=== PATIENT | female | born 1960 | race Two or more races ===

== ENCOUNTER → 2017-07-02 | Outpatient (CLI) | payer BC ==
[2017-07-02 12:36] LABS: Basophils # (auto) 0 uL; Basophils % (auto) 0.4 % (0.0-2.0); Eosinophils # (auto) 0.2 uL; Eosinophils % (auto) 3.4 % (0.0-7.0); Hematocrit 39.1 % (36.0-46.0); Hemoglobin 12.8 g/dL (12.2-16.2); Lymphocytes # (auto) 1.4 uL; Lymphocytes % (auto) 22.9 % (10.0-50.0); Mean Corpuscular Hemoglobin 28.6 pg (28.0-32.0); Mean Corpuscular Hgb Conc. 32.8 g/dL (32.0-36.0); Mean Corpuscular Volume 87.4 fL (80.0-100.0); Mean Platelet Volume 8.6 fL (6.9-10.8); Monocytes # (auto) 0.4 uL; Neutrophils # (auto) 4.2 uL; Neutrophils % (auto) 67.3 % (37.0-80.0); Platelet Count (auto) 251 10^3/uL (140-450); Red Cell Distribution Width 14.6 % (11.8-14.3); White Blood Cell 6.2 10^3/uL (4.4-10.8)
[2017-07-02 12:42] LABS: Albumin 3.4 g/dL (3.4-5.0); BUN/Creatinine Ratio 14.8; Bilirubin, Total 0.6 mg/dL (0.2-1.0); Calcium 8.5 mg/dL (8.5-10.1); Potassium 3.4 mmol/L (3.5-5.1); Total Protein 7.2 g/dL (6.4-8.2)
== END | disposition home or self-care (01) ==
LOC: LAB 11:00
PROVIDERS: ATTEND Internal Medicine
DX: Z00.01 Encounter for general adult medical examination with abnormal findings (principal); D56.3 Thalassemia minor; E66.9 Obesity, unspecified; M51.35 Other intervertebral disc degeneration, thoracolumbar region; R79.89 Other specified abnormal findings of blood chemistry
CPT/HCPCS: 36415; 80053; 80061; 82043; 82306; 84443; 85025

== ENCOUNTER → 2017-07-06 | Outpatient (CLI) | payer BC | END | disposition home or self-care (01) | LOC: LAB 14:04 | PROVIDERS: ATTEND Internal Medicine | DX: D56.3 Thalassemia minor (principal); E55.9 Vitamin D deficiency, unspecified; M51.35 Other intervertebral disc degeneration, thoracolumbar region | CPT/HCPCS: 82270 ==

== ENCOUNTER 2017-10-19 03:46 | Emergency (ER) | payer BC ==
[~2017-10-19] VITALS: Ht 160 cm; Wt 99.8 kg
[2017-10-19 04:40] LABS: Urine Bacteria FEW /hpf (None Seen); Urine Blood TRACE /uL (Negative); Urine Mucus FEW (None Seen); Urine Specific Gravity 1.018 (1.001-1.035); Urine WBC 49 /hpf (0 - 5)
[2017-10-19 06:39] LABS: Basophils # (auto) 0 uL; Basophils % (auto) 0.5 % (0.0-2.0); Eosinophils # (auto) 0.1 uL; Eosinophils % (auto) 1.8 % (0.0-7.0); Hemoglobin 12.5 g/dL (12.2-16.2); Lymphocytes # (auto) 1.5 uL; Lymphocytes % (auto) 22.3 % (10.0-50.0); Mean Corpuscular Hemoglobin 28.6 pg (28.0-32.0); Mean Corpuscular Volume 86.6 fL (80.0-100.0); Monocytes # (auto) 0.4 uL; Neutrophils # (auto) 4.5 uL; Neutrophils % (auto) 69.4 % (37.0-80.0); Platelet Count (auto) 220 10^3/uL (140-450); Red Blood Cells 4.39 10^6/uL (4.0-5.20); Red Cell Distribution Width 15.3 % (11.8-14.3); White Blood Cell 6.5 10^3/uL (4.4-10.8)
[2017-10-19 06:57] LABS: Albumin 3.4 g/dL (3.4-5.0); BUN/Creatinine Ratio 30.4; Bilirubin, Total 0.4 mg/dL (0.2-1.0); Calcium 8.4 mg/dL (8.5-10.1); Potassium 3.5 mmol/L (3.5-5.1); Total Protein 6.8 g/dL (6.4-8.2)
[2017-10-19 07:05] VITALS: BP 142/92
[2017-10-19 07:13] LABS: INR 0.98 (0.9-1.15); Partial Thromboplastin Time 28.5 sec (22.64-33.71); Prothrombin Time 10.7 sec (9.37-12.3)
[2017-10-19] MEDS ORDERED: KETOROLAC TROMETH 30 MG/ML 1ML VIAL IV ONE (07:30)
[2017-10-19] MEDS ORDERED: SODIUM CHLORIDE 0.9% 1,000 ML IVB ONE (07:30)
[2017-10-19] MEDS ORDERED: ONDANSETRON HCL 4 MG/2 ML VIAL IV ONE (07:45)
== END 2017-10-19 10:02 | disposition home or self-care (01) ==
LOC: ER 03:46
DX: N39.0 Urinary tract infection, site not specified (principal); Z90.89 Acquired absence of other organs; Z87.442 Personal history of urinary calculi; Z88.8 Allergy status to other drugs, medicaments and biological substances
CPT/HCPCS: 36415; 74176; 80053; 81001; 82150; 83690; 85025; 85610; 85730; 94761; 96361; 96374; 96375; 99285; J1885; J2405; J7030

== ENCOUNTER 2017-11-18 00:49 | Inpatient (IN) | payer BC ==
[~2017-11-18] VITALS: Ht 165.1 cm; Wt 106.3 kg
[2017-11-18] MEDS ORDERED: HYDROmorphone HCL 2 MG/ML VL IV ONE (01:00)
[2017-11-18] MEDS ORDERED: ONDANSETRON HCL 4 MG/2 ML VIAL IV ONE ×2 (01:00→02:00)
[2017-11-18] MEDS ORDERED: MORPHINE SULFATE 4 MG/ML SYR/VIAL ONE (01:05)
[2017-11-18] MEDS ORDERED: MORPHINE SULFATE 4 MG/ML SYR/VIAL IV ONE ×2 (01:15→01:30)
[2017-11-18 01:21] LABS: Basophils # (auto) 0 uL; Basophils % (auto) 0.4 % (0.0-2.0); Eosinophils # (auto) 0.2 uL; Hematocrit 39.2 % (36.0-46.0); Hemoglobin 13.1 g/dL (12.2-16.2); Lymphocytes # (auto) 1.8 uL; Lymphocytes % (auto) 23.1 % (10.0-50.0); Mean Corpuscular Hemoglobin 29.1 pg (28.0-32.0); Mean Corpuscular Hgb Conc. 33.4 g/dL (32.0-36.0); Monocytes # (auto) 0.4 uL; Monocytes % (auto) 4.9 % (0.0-12.0); Neutrophils # (auto) 5.5 uL; Neutrophils % (auto) 69.6 % (37.0-80.0); Platelet Count (auto) 264 10^3/uL (140-450); Red Blood Cells 4.51 10^6/uL (4.0-5.20); Red Cell Distribution Width 15.1 % (11.8-14.3); White Blood Cell 7.9 10^3/uL (4.4-10.8)
[2017-11-18 01:32] LABS: Urine Bacteria FEW /hpf (None Seen); Urine Blood 3+ /uL (Negative); Urine Specific Gravity 1.024 (1.001-1.035); Urine WBC 5 /hpf (0 - 5)
[2017-11-18 01:36] LABS: Albumin 3.6 g/dL (3.4-5.0); BUN/Creatinine Ratio 20.8; Calcium 8.6 mg/dL (8.5-10.1); Potassium 3.9 mmol/L (3.5-5.1)
[2017-11-18 01:42] LABS: Bilirubin, Total 0.3 mg/dL (0.2-1.0); Total Protein 7.3 g/dL (6.4-8.2)
[2017-11-18] MEDS ORDERED: IODIXANOL 320MG/ML 100ML BTL IV ONE (01:54)
[2017-11-18] MEDS ORDERED: SODIUM CHLORIDE 0.9% 1,000 ML IV ONE (02:00)
[2017-11-18] MEDS ORDERED: HYDROmorphone HCL 2 MG TAB PO ONE (02:00)
[2017-11-18] MEDS ORDERED: TEMAZEPAM 15 MG CAP PO PRN (05:15)
[2017-11-18] MEDS ORDERED: MORPHINE SULFATE 4 MG/ML SYR/VIAL IV PRN (05:15)
[2017-11-18] MEDS ORDERED: ONDANSETRON HCL 4 MG/2 ML VIAL IV PRN (05:15)
[2017-11-18] MEDS ORDERED: HYDROcodone-ACET 5/325MG TAB PO PRN (05:15)
[2017-11-18] MEDS ORDERED: TAMSULOSIN HYDROCHLORIDE 0.4 MG CAP PO ONE (05:15)
[2017-11-18] MEDS ORDERED: cefTRIAXone 1GM/10ml IVPUSH 10 ML IV ONE (05:45)
[2017-11-18] MEDS: GABAPENTIN 300 MG CAP PO SCH ×3 (05:56→21:53)
[2017-11-18] MEDS: SODIUM CHLORIDE 0.9% 1,000 ML IV SCH ×2 (06:04→16:38)
[2017-11-18] MEDS ORDERED: OMEP20CA74 PO (06:12)
[2017-11-18 06:14] VITALS: BP 144/69
[2017-11-18] MEDS ORDERED: MELO1TAB73 PO (06:53)
[2017-11-18] MEDS ORDERED: GABA-339 PO (06:53)
[2017-11-18 07:44] VITALS: BP 123/69
[2017-11-18] MEDS: cefTRIAXone 1GM/10ml IVPUSH 10 ML IV SCH (09:36)
[2017-11-18] MEDS: FAMOTIDINE 20 MG TAB PO SCH ×2 (09:36→21:53)
[2017-11-18] MEDS: HCTZ 25 MG TAB PO SCH (09:37)
[2017-11-18] MEDS: ENOXAPARIN SOD 40 MG/0.4 ML SYRINGE SC SCH (09:39)
[2017-11-18 12:10] VITALS: BP 122/66
[2017-11-18 16:42] VITALS: BP 129/78
[2017-11-18] MEDS: ACETAMINOPHEN 325 MG TAB PO PRN (18:37)
[2017-11-18 21:50] VITALS: BP 105/39
[2017-11-19] MEDS: SODIUM CHLORIDE 0.9% 1,000 ML IV SCH (04:06)
[2017-11-19 05:00] VITALS: BP 127/75
[2017-11-19] MEDS: GABAPENTIN 300 MG CAP PO SCH (05:05)
[2017-11-19 06:27] LABS: Basophils # (auto) 0 uL; Basophils % (auto) 0.4 % (0.0-2.0); Eosinophils # (auto) 0.1 uL; Hematocrit 38.5 % (36.0-46.0); Hemoglobin 12.9 g/dL (12.2-16.2); Lymphocytes # (auto) 1.5 uL; Lymphocytes % (auto) 20.9 % (10.0-50.0); Mean Corpuscular Hemoglobin 29.1 pg (28.0-32.0); Mean Corpuscular Hgb Conc. 33.4 g/dL (32.0-36.0); Mean Corpuscular Volume 87.2 fL (80.0-100.0); Monocytes # (auto) 0.5 uL; Monocytes % (auto) 6.5 % (0.0-12.0); Neutrophils % (auto) 70.2 % (37.0-80.0); Nucleated Red Blood Cells % 0.1 %; Platelet Count (auto) 246 10^3/uL (140-450); Red Blood Cells 4.42 10^6/uL (4.0-5.20); Red Cell Distribution Width 15.2 % (11.8-14.3); White Blood Cell 7.2 10^3/uL (4.4-10.8)
[2017-11-19 06:48] LABS: Albumin 3.4 g/dL (3.4-5.0); BUN/Creatinine Ratio 15.1; Calcium 8.8 mg/dL (8.5-10.1)
[2017-11-19 06:50] LABS: Bilirubin, Total 0.7 mg/dL (0.2-1.0)
[2017-11-19] MEDS: ACETAMINOPHEN 325 MG TAB PO PRN (07:00)
[2017-11-19 08:10] VITALS: BP 132/69
[2017-11-19 08:28] VITALS: BP 123/69
[2017-11-19] MEDS: cefTRIAXone 1GM/10ml IVPUSH 10 ML IV SCH (09:40)
[2017-11-19] MEDS: FAMOTIDINE 20 MG TAB PO SCH (09:41)
[2017-11-19] MEDS: ENOXAPARIN SOD 40 MG/0.4 ML SYRINGE SC SCH (09:41)
[2017-11-19] MEDS: HCTZ 25 MG TAB PO SCH (09:41)
[2017-11-19 10:50] VITALS: BP 132/69
== END 2017-11-19 11:20 | disposition home or self-care (01) | DRG 699 ==
LOC: ER 00:49 → OVERFLOW 00:50 → CENTRAL 05:47
PROVIDERS: ADMIT Nurse Practitioner; ATTEND Family Medicine
DX: N28.1 Cyst of kidney, acquired (principal); N39.0 Urinary tract infection, site not specified; G62.9 Polyneuropathy, unspecified; N13.2 Hydronephrosis with renal and ureteral calculous obstruction; I10 Essential (primary) hypertension; G47.00 Insomnia, unspecified; N28.89 Other specified disorders of kidney and ureter; Z88.5 Allergy status to narcotic agent; Z90.89 Acquired absence of other organs; Z79.899 Other long term (current) drug therapy
CPT/HCPCS: 36415; 74018; 74176; 74177; 76775; 80053; 81001; 85025; 96374; 96375; 96376; J2405; Q9967

== ENCOUNTER 2017-12-06 05:48 | Emergency (ER) | payer BC ==
[~2017-12-06] VITALS: Ht 165.1 cm; Wt 98.4 kg
[~2017-12-06 05:48] MED LIST: GABA-339 PO; MELO1TAB73 PO; OMEP20CA74 PO
[2017-12-06 06:36] VITALS: BP 139/53
== END 2017-12-06 06:37 | disposition home or self-care (01) ==
LOC: ER 05:48
DX: S83.502A Sprain of unspecified cruciate ligament of left knee, initial encounter (principal); M17.12 Unilateral primary osteoarthritis, left knee; Z90.89 Acquired absence of other organs; Z88.8 Allergy status to other drugs, medicaments and biological substances; X58.XXXA Exposure to other specified factors, initial encounter; Y93.89 Activity, other specified; Y99.8 Other external cause status; Y92.89 Other specified places as the place of occurrence of the external cause
CPT/HCPCS: 73700

== ENCOUNTER → 2018-10-10 | Outpatient (CLI) | payer BC ==
[2018-10-10 08:10] LABS: Basophils # (auto) 0 uL; Basophils % (auto) 0.5 % (0.0-2.0); Eosinophils # (auto) 0.1 uL; Eosinophils % (auto) 2.8 % (0.0-7.0); Hematocrit 37.4 % (36.0-46.0); Hemoglobin 12.4 g/dL (12.2-16.2); Lymphocytes # (auto) 1.5 uL; Lymphocytes % (auto) 28.9 % (10.0-50.0); Mean Corpuscular Hemoglobin 27.9 pg (28.0-32.0); Mean Corpuscular Hgb Conc. 33.2 g/dL (32.0-36.0); Mean Corpuscular Volume 84.2 fL (80.0-100.0); Monocytes # (auto) 0.3 uL; Monocytes % (auto) 6.3 % (0.0-12.0); Neutrophils # (auto) 3.2 uL; Neutrophils % (auto) 61.5 % (37.0-80.0); Platelet Count (auto) 253 10^3/uL (140-450); Red Blood Cells 4.44 10^6/uL (4.0-5.20); Red Cell Distribution Width 14.8 % (11.8-14.3); White Blood Cell 5.2 10^3/uL (4.4-10.8)
[2018-10-10 08:20] LABS: Alanine Aminotransferase 24 U/L (13-56); Albumin 3.5 g/dL (3.4-5.0); Anion Gap 5 (5-15); Aspartate Aminotransferase 16 U/L (15-37); BUN/Creatinine Ratio 22.9; Blood Urea Nitrogen 16 mg/dL (7-18); Calcium 9.1 mg/dL (8.5-10.1); Carbon Dioxide 28 mmol/L (21-32); Chloride 106 mmol/L (98-107); GFR African American > 60 mL/min; GFR Non-African American > 60 mL/min; Glucose 106 mg/dL (74-106); Potassium 3.7 mmol/L (3.5-5.1); Sodium 139 mmol/L (136-145)
[2018-10-10 08:24] LABS: Alkaline Phosphatase 103 U/L (45-117); Bilirubin, Total 0.4 mg/dL (0.2-1.0); Cholesterol 212 mg/dL (< 200); HDL Cholesterol 63 mg/dL (40-59); LDL Cholesterol 146 mg/dL (< 100); Total Protein 7.4 g/dL (6.4-8.2); Triglycerides 63 mg/dL (< 150)
== END | disposition home or self-care (01) ==
LOC: LAB 07:31
PROVIDERS: ATTEND Internal Medicine
DX: K29.60 Other gastritis without bleeding (principal); M51.24 Other intervertebral disc displacement, thoracic region; D56.3 Thalassemia minor; Z68.37 Body mass index [BMI] 37.0-37.9, adult
CPT/HCPCS: 36415; 80053; 80061; 83036; 84443; 85025

== ENCOUNTER → 2018-10-22 | Outpatient (CLI) | payer BC | END | disposition home or self-care (01) | LOC: LAB 08:32 | PROVIDERS: ATTEND Internal Medicine | DX: D56.3 Thalassemia minor (principal); M51.24 Other intervertebral disc displacement, thoracic region; K29.60 Other gastritis without bleeding; Z68.37 Body mass index [BMI] 37.0-37.9, adult | CPT/HCPCS: 82270 ==

== ENCOUNTER 2018-11-16 18:27 | Emergency (ER) | payer BC ==
[~2018-11-16] VITALS: Ht 165.1 cm; Wt 99.8 kg
[2018-11-16 18:28] VITALS: BP 131/68
[2018-11-16] MEDS ORDERED: cefTRIAXone SOD 1,000 MG VL ONE ×2 (19:01→19:04)
[2018-11-17] MEDS ORDERED: TRIAMCINOLONE 40MG/ML 1ML VIAL IM ONE
[2018-11-17] MEDS ORDERED: TRIAMCINOLONE 40MG/ML 1ML VIAL ONE (00:01)
== END 2018-11-16 19:00 | disposition home or self-care (01) ==
LOC: ER 18:27
DX: M75.31 Calcific tendinitis of right shoulder (principal); Z90.89 Acquired absence of other organs; Z88.1 Allergy status to other antibiotic agents; Z88.5 Allergy status to narcotic agent
CPT/HCPCS: 73200; 99284; J0696

== ENCOUNTER 2018-12-14 21:21 | Emergency (ER) | payer BC ==
[~2018-12-14] VITALS: Ht 165.1 cm; Wt 99.8 kg
[2018-12-14 21:42] VITALS: BP 125/71
[2018-12-14] MEDS ORDERED: diphenhdrAMINE HCL 50 MG/1 ML VL IV ONE (22:00)
[2018-12-14] MEDS ORDERED: EPINEPHrine HCL 1 MG/1 ML AMP SC ONE (22:00)
[2018-12-14] MEDS ORDERED: DEXAMETHASONE SOD PHOS 10MG/1ML VIAL INJ IV ONE (22:00)
[2018-12-15] MEDS ORDERED: cefTRIAXone SOD 1,000 MG VL IM ONE (00:30)
== END 2018-12-14 23:13 | disposition home or self-care (01) ==
LOC: ER 21:25
DX: T78.3XXA Angioneurotic edema, initial encounter (principal); N39.0 Urinary tract infection, site not specified; M19.90 Unspecified osteoarthritis, unspecified site; K21.9 Gastro-esophageal reflux disease without esophagitis; Z87.442 Personal history of urinary calculi; Z98.51 Tubal ligation status; Z88.1 Allergy status to other antibiotic agents; X58.XXXA Exposure to other specified factors, initial encounter
CPT/HCPCS: 96372; 96374; 96375; 99283; J0171; J1100; J1200

== ENCOUNTER 2019-01-25 05:29 | Emergency (ER) | payer BC ==
[~2019-01-25] VITALS: Ht 165.1 cm; Wt 99.8 kg
[2019-01-25] MEDS ORDERED: SODIUM CHLORIDE 0.9% 1,000 ML IVB ONE (05:36)
[2019-01-25] MEDS ORDERED: ONDANSETRON HCL 4 MG/2 ML VIAL IV ONE (05:45)
[2019-01-25] MEDS ORDERED: KETOROLAC TROMETH 30 MG/ML 1ML VIAL IV ONE ×2 (05:45→09:30)
[2019-01-25 06:06] LABS: Basophils # (auto) 0 uL; Basophils % (auto) 0.5 % (0.0-2.0); Eosinophils # (auto) 0.2 uL; Eosinophils % (auto) 3.1 % (0.0-7.0); Hematocrit 35.4 % (36.0-46.0); Hemoglobin 11.8 g/dL (12.2-16.2); Lymphocytes # (auto) 1.3 uL; Lymphocytes % (auto) 27.1 % (10.0-50.0); Mean Corpuscular Hemoglobin 28.2 pg (28.0-32.0); Mean Corpuscular Hgb Conc. 33.3 g/dL (32.0-36.0); Mean Corpuscular Volume 84.7 fL (80.0-100.0); Monocytes # (auto) 0.3 uL; Monocytes % (auto) 5.4 % (0.0-12.0); Neutrophils # (auto) 3.1 uL; Neutrophils % (auto) 63.9 % (37.0-80.0); Nucleated Red Blood Cells % 0.1 %; Platelet Count (auto) 230 10^3/uL (140-450); Red Blood Cells 4.18 10^6/uL (4.0-5.20); Red Cell Distribution Width 16.2 % (11.8-14.3); White Blood Cell 4.9 10^3/uL (4.4-10.8)
[2019-01-25 06:25] LABS: Albumin 3.2 g/dL (3.4-5.0); Anion Gap 6 (5-15); Blood Urea Nitrogen 18 mg/dL (7-18); Calcium 8.5 mg/dL (8.5-10.1); Carbon Dioxide 27 mmol/L (21-32); Chloride 111 mmol/L (98-107); Glucose 91 mg/dL (74-106); Lipase 82 U/L (73-393); Sodium 144 mmol/L (136-145)
[2019-01-25 06:27] LABS: Amylase 51 U/L (25-115); BUN/Creatinine Ratio 25.7; GFR African American 111 mL/min; GFR Non-African American 91 mL/min
[2019-01-25 06:39] LABS: Alanine Aminotransferase 20 U/L (13-56); Alkaline Phosphatase 83 U/L (45-117); Aspartate Aminotransferase 15 U/L (15-37); Bilirubin, Total 0.3 mg/dL (0.2-1.0); Total Protein 6.5 g/dL (6.4-8.2)
[2019-01-25 07:06] LABS: Urine Bacteria NONE SEEN /hpf (None Seen); Urine Blood TRACE /uL (Negative); Urine Mucus FEW (None Seen); Urine Specific Gravity 1.015 (1.001-1.035); Urine WBC 19 /hpf (0 - 5)
[2019-01-25] MEDS ORDERED: cefTRIAXone 1GM/50ML D5W 50 ML IV ONE (08:45)
[2019-01-25] MEDS ORDERED: cefTRIAXone SOD 1,000 MG VL ONE (09:20)
[2019-01-25] MEDS ORDERED: SODIUM CHLORIDE 0.9% 1,000 ML IV ONE ×2 (09:30→09:45)
[2019-01-25] MEDS ORDERED: TAMSULOSIN HYDROCHLORIDE 0.4 MG CAP PO ONE (09:30)
[2019-01-25 12:13] VITALS: BP 127/66
== END 2019-01-25 12:21 | disposition home or self-care (01) ==
LOC: ER 05:29
DX: N20.0 Calculus of kidney (principal); N39.0 Urinary tract infection, site not specified; M19.90 Unspecified osteoarthritis, unspecified site; K21.9 Gastro-esophageal reflux disease without esophagitis; Z88.1 Allergy status to other antibiotic agents; Z88.6 Allergy status to analgesic agent; Z98.51 Tubal ligation status; Z90.89 Acquired absence of other organs
CPT/HCPCS: 36415; 74176; 80053; 81001; 82150; 83690; 84484; 85025; 96361; 96365; 96375; 96376; 99284; J0696; J1885; J2405; J7030

== ENCOUNTER 2019-01-30 07:31 | Inpatient (IN) | payer BC ==
[~2019-01-30] VITALS: Ht 165.1 cm; Wt 104.8 kg
[2019-01-30] MEDS ORDERED: KETOROLAC TROMETH 30 MG/ML 1ML VIAL IV ONE (08:00)
[2019-01-30] MEDS ORDERED: SODIUM CHLORIDE 0.9% 1,000 ML IV ONE (08:30)
[2019-01-30] MEDS ORDERED: SODIUM CHLORIDE 0.9% 1,000 ML IV SCH (08:43)
[2019-01-30] MEDS ORDERED: NALBUPHINE HCL 10 MG/1ml INJECTION IV PRN (08:45)
[2019-01-30] MEDS ORDERED: MORPHINE SULF INJ 2 MG/ML SYRINGE 1ML IV PRN (08:45)
[2019-01-30] MEDS ORDERED: TEMAZEPAM 15 MG CAP PO PRN (08:45)
[2019-01-30] MEDS ORDERED: PROMETHAZINE HCL 25 MG/ML 1ML IV ONE (08:45)
[2019-01-30] MEDS ORDERED: PROMETHAZINE HCL 25 MG/ML 1ML IV PRN (08:45)
[2019-01-30] MEDS ORDERED: TAMSULOSIN HYDROCHLORIDE 0.4 MG CAP PO ONE (08:45)
[2019-01-30] MEDS ORDERED: ACETAMINOPHEN 500 MG TAB PO PRN (08:45)
[2019-01-30] MEDS ORDERED: traMADol HCL 50 MG TAB PO PRN (08:45)
[2019-01-30] MEDS ORDERED: NITROGLYCERIN 0.4 MG SL TAB SL PRN (08:45)
[2019-01-30] MEDS ORDERED: cefTRIAXone 1GM/50ML D5W 50 ML IV SCH (09:00)
--- NOTE | 2019-01-30 09:30 | NUR ---
RECEIVED REPORT FROM GRETA CHOI
[2019-01-30 09:33] LABS: Basophils # (auto) 0 uL; Basophils % (auto) 0.5 % (0.0-2.0); Eosinophils # (auto) 0.2 uL; Eosinophils % (auto) 2.9 % (0.0-7.0); Hematocrit 35.5 % (36.0-46.0); Hemoglobin 11.6 g/dL (12.2-16.2); Lymphocytes # (auto) 1.1 uL; Lymphocytes % (auto) 19.3 % (10.0-50.0); Mean Corpuscular Hemoglobin 27.4 pg (28.0-32.0); Mean Corpuscular Hgb Conc. 32.5 g/dL (32.0-36.0); Mean Corpuscular Volume 84.1 fL (80.0-100.0); Monocytes # (auto) 0.3 uL; Neutrophils # (auto) 4.3 uL; Neutrophils % (auto) 72.3 % (37.0-80.0); Platelet Count (auto) 236 10^3/uL (140-450); Red Blood Cells 4.22 10^6/uL (4.0-5.20); Red Cell Distribution Width 15.8 % (11.8-14.3); White Blood Cell 5.9 10^3/uL (4.4-10.8)
[2019-01-30 09:45] LABS: Albumin 3.4 g/dL (3.4-5.0); Calcium 8.5 mg/dL (8.5-10.1); Potassium 3.6 mmol/L (3.5-5.1)
[2019-01-30 09:50] LABS: BUN/Creatinine Ratio 26.7; Bilirubin, Total 0.2 mg/dL (0.2-1.0); Total Protein 6.8 g/dL (6.4-8.2)
[2019-01-30] MEDS ORDERED: ENOXAPARIN SOD 40 MG/0.4 ML SYRINGE SC SCH (10:00)
[2019-01-30] MEDS ORDERED: FAMOTIDINE 20 MG TAB PO SCH (10:00)
--- NOTE | 2019-01-30 10:10 | NUR ---
Telemetry admit from [facility] admitted to Telemetry unit after SBAR received. Patient oriented to Niurka Martinez, primary RN, unit, room, bed, and unit policies regarding patient care and visiting hours. Patient now on continuous telemetry monitoring, tele box # 9 and telemetry reading on arrival to unit is SINUS RHYTHM AT 77BPM. Patient placed on bedside oxygen, weighed by bedscale and encouraged to call if they need something. All questions and concerns addressed, patient verbalized understanding. Note: PT IS AWAKE AND ALERT, NO COMPLAINTS OF ABDOMINAL PAIN AT THIS TIME, WILL CONTINUE TO MONITOR.
[2019-01-30 10:15] LABS: Urine Bacteria FEW /hpf (None Seen); Urine Blood Negative /uL (Negative); Urine Specific Gravity 1.003 (1.001-1.035); Urine WBC 1 /hpf (0 - 5)
[2019-01-30] MEDS ORDERED: CELE100C82 PO (10:47)
[2019-01-30] MEDS ORDERED: NITR-52 PO (10:47)
[2019-01-30] MEDS ORDERED: GABA300C10 PO (10:47)
--- NOTE | 2019-01-30 11:13 | NUR ---
SPOKE WITH DR. KAISER HE SAID HE SPOKE WITH DR. ROOT AND PER DR. ROOT HE WILL NOT DO PROCEDURE UNTIL SUNDAY. DR. KAISER WILL TALK TO HOSPITALIST, PT IS POSSIBLE DISCHARGE LATER TODAY AFTER BEING SEEN BY DR. ROOT. Addendum: 01/30/19 at 1117 by Niurka Martinez RN PER DR. KAISER PT WILL BE DISCHARGE WITH PAIN MEDICATION.
[2019-01-30 12:30] VITALS: BP 142/93
[2019-01-30] MEDS ORDERED: MANNITOL 20% SOLN 100 gm/500ml 62.5 ML IV ONE (15:00)
--- NOTE | 2019-01-30 15:15 | NUR ---
SPOKE WITH DR. GONZALEZ MADE AWARE PT IS ASKING IF SHE CAN GO HOME. DR. ROOT TOLD THE PT THAT SHE WILL COME BACK ON SUNDAY AND WILL BE SCHEDULED FOR LITHOTRIPSY ON SUNDAY. DR. GONZALEZ SAID SHE NEEDS TO STAY OVERNIGHT BECAUSE OF THE STONE PAIN MIGHT COME BACK BUT IF PT WANTS TO GO HOME I WILL CALL DR. MELVIN TO SEE THE PT FOR DISCHARGE ORDER.
--- NOTE | 2019-01-30 15:34 | NUR ---
[facility] DR. MELVIN MADE AWARE PT IS REQUESTING TO GO HOME, PER PT DR. ROOT TOLD HER SHE CAN GO HOME AND WILL BE SCHEDULED FOR LITHOTRIPSY ON SUNDAY. DR. MELVIN ORDERED TO DISCHARGE THE PT.
--- NOTE | 2019-01-30 16:24 | NUR ---
SPOKE WITH DR. NEWTON MADE CLARIFICATION REGARDING ORDER FOR MANNITOL AND PROCEDURE ON SUNDAY. PER DR. ROOT PT NEEDS TO HAVE THE IV MANNITOL EXPULSIVE MEASURE SO THAT IF SHE PASS OUT THE STONE SHE WILL NOT NEED THE LITHOTRIPSY PROCEDURE. PT MADE AWARE AND AGREED.
--- NOTE | 2019-01-30 16:40 | NUR ---
PT INSTRUCTED TO STRAIN ALL URINE.
[2019-01-30 16:52] VITALS: BP 137/79
[2019-01-30] MEDS ORDERED: TAMSULOSIN HYDROCHLORIDE 0.4 MG CAP PO SCH (18:00)
--- NOTE | 2019-01-30 18:14 | NUR ---
medication held pt already took flomax early today.
[2019-01-30 18:24] VITALS: BP 137/79
--- NOTE | 2019-01-30 19:10 | NUR ---
care endorsed to GRETA Zimmer Made aware pt is for discharge pt need to observe the pain if she can tolerate it after mannitol was given.
--- NOTE | 2019-01-30 20:05 | NUR ---
Given and explained discharge papers and understood and signed, including appointment to her primary doctor Castillo Renteria on at 0900, patient knows the address, and also to call appointment on Sunday to Dr. Piper.
--- NOTE | 2019-01-30 20:15 | NUR ---
Discharged in good condition ambulatory ,refused to be in [place] and to accompany her, said she is oma by herself. Removed the i.v.line and tele box and returned the tele box.
== END 2019-01-30 20:15 | disposition home or self-care (01) | DRG 694 ==
LOC: ER 07:31 → TELE 08:46 → WEST WING 10:19 → TELE-WESTW 18:26
PROVIDERS: ADMIT Internal Medicine; ATTEND Internal Medicine
DX: N13.2 Hydronephrosis with renal and ureteral calculous obstruction (principal); K57.30 Diverticulosis of large intestine without perforation or abscess without bleeding; K21.9 Gastro-esophageal reflux disease without esophagitis; E66.9 Obesity, unspecified; M19.90 Unspecified osteoarthritis, unspecified site; Z87.442 Personal history of urinary calculi; Z81.8 Family history of other mental and behavioral disorders; Z98.84 Bariatric surgery status; Z68.38 Body mass index [BMI] 38.0-38.9, adult; Z87.440 Personal history of urinary (tract) infections; Z88.2 Allergy status to sulfonamides; Z88.8 Allergy status to other drugs, medicaments and biological substances
CPT/HCPCS: 36415; 74176; 80053; 81001; 82150; 83690; 85025; 87086; 96365; 96375; G0378; J0696; J1885

== ENCOUNTER 2019-02-03 08:14 | Inpatient (IN) | payer BC ==
[~2019-02-03] VITALS: Ht 165.1 cm; Wt 107.2 kg
[~2019-02-03 08:14] MED LIST changes: +CELE100C82 PO; -GABA-339 PO; +GABA300C10 PO; -MELO1TAB73 PO; +NITR-52 PO; -OMEP20CA74 PO
[2019-02-03] MEDS ORDERED: SODIUM CHLORIDE 0.9% 1,000 ML IV ONE ×2 (08:31)
[2019-02-03] MEDS ORDERED: KETOROLAC TROMETH 30 MG/ML 1ML VIAL IV ONE (09:00)
[2019-02-03] MEDS ORDERED: PROMETHAZINE HCL 25 MG/ML 1ML IV ONE (09:00)
[2019-02-03 09:01] LABS: Basophils # (auto) 0 uL; Basophils % (auto) 0.5 % (0.0-2.0); Eosinophils # (auto) 0.1 uL; Eosinophils % (auto) 2.8 % (0.0-7.0); Hematocrit 36.5 % (36.0-46.0); Hemoglobin 11.8 g/dL (12.2-16.2); Lymphocytes # (auto) 0.9 uL; Lymphocytes % (auto) 19.6 % (10.0-50.0); Mean Corpuscular Hemoglobin 27.2 pg (28.0-32.0); Mean Corpuscular Hgb Conc. 32.3 g/dL (32.0-36.0); Monocytes # (auto) 0.2 uL; Neutrophils # (auto) 3.4 uL; Neutrophils % (auto) 72.1 % (37.0-80.0); Platelet Count (auto) 245 10^3/uL (140-450); Red Blood Cells 4.35 10^6/uL (4.0-5.20); White Blood Cell 4.8 10^3/uL (4.4-10.8)
[2019-02-03 09:16] LABS: INR 0.92 (0.9-1.15); Partial Thromboplastin Time 27.3 sec (23.64-32.05)
[2019-02-03 09:22] LABS: Potassium 3.7 mmol/L (3.5-5.1)
[2019-02-03 09:26] LABS: Albumin 3.3 g/dL (3.4-5.0); BUN/Creatinine Ratio 25.4; Calcium 8.4 mg/dL (8.5-10.1)
[2019-02-03 09:28] LABS: Bilirubin, Total 0.5 mg/dL (0.2-1.0); Total Protein 6.9 g/dL (6.4-8.2)
[2019-02-03] MEDS ORDERED: SODIUM CHLORIDE 0.9% 1,000 ML IV SCH (10:44)
[2019-02-03] MEDS ORDERED: ACETAMINOPHEN 500 MG TAB PO PRN (10:45)
[2019-02-03] MEDS ORDERED: MORPHINE SULF INJ 2 MG/ML SYRINGE 1ML IV PRN ×2 (10:45)
[2019-02-03] MEDS ORDERED: HYDROcodone-ACET 5/325MG TAB PO PRN (10:45)
[2019-02-03] MEDS ORDERED: NITROGLYCERIN 0.4 MG SL TAB SL PRN (10:45)
[2019-02-03] MEDS ORDERED: ONDANSETRON HCL 4 MG/2 ML VIAL IV PRN (10:45)
[2019-02-03 10:55] LABS: Urine Bacteria NONE SEEN /hpf (None Seen); Urine Blood 2+ /uL (Negative); Urine Specific Gravity 1.006 (1.001-1.035); Urine WBC <1 /hpf (0 - 5)
[2019-02-03] MEDS ORDERED: cefTRIAXone 1GM/50ML D5W 50 ML IV ONE (12:04)
--- NOTE | 2019-02-03 12:35 | NUR ---
MS admit from [facility] RUBEN HERRERA admitted to MS, NO SBAR received. Patient oriented to Niurka Martinez, primary RN, unit, room, bed, and unit policies regarding patient care and visiting hours. Patient weighed by bedscale and encouraged to call if they need something. All questions and concerns addressed, patient verbalized understanding. Note: PT IS AWAKE AND ALERT, PT IS SCHEDULED FOR ESWL PROCEDURE UNDER DR. ROOT.
[2019-02-03 12:45] VITALS: BP 126/69
--- NOTE | 2019-02-03 12:55 | NUR ---
PT TRANSFERRED TO PRE-OP VIA BED, PT IS AWAKE AND ALERT, IV ON RIGHT AC PATENT AND FLUSHING, PT STILL TO SIGN CONSENTS FOR SURGERY, PRE-OP NURSE KENNETH MADE AWARE, NO SIGNS OF DISTRESS AT THIS TIME.
[2019-02-03] MEDS ORDERED: ceFAZolin 1GM/50ML 50 ML IV ONE (13:00)
[2019-02-03] MEDS ORDERED: FUROSEMIDE 20 MG/2 ML VIAL IV ONE (13:10)
[2019-02-03] MEDS ORDERED: fentaNYL CITRATE 100 MCG/2 ML VL ONE (13:14)
[2019-02-03] MEDS ORDERED: MIDAZOLAM HCL 1MG/1ML-2 ML VIAL ONE (13:14)
[2019-02-03] MEDS ORDERED: PROPOFOL 10 MG/ML 20 ML IV ONE (13:14)
[2019-02-03] MEDS ORDERED: fentaNYL CITRATE 100 MCG/2 ML VL IV ONE (13:59)
[2019-02-03] MEDS ORDERED: ONDANSETRON HCL 4 MG/2 ML VIAL IV ONE (14:00)
[2019-02-03] MEDS ORDERED: fentaNYL CITRATE 100 MCG/2 ML VL IV PRN (14:00)
[2019-02-03] MEDS ORDERED: ePHEDrine SULFATE 50 MG/ML AMP IV PRN (14:00)
[2019-02-03] MEDS ORDERED: hydrALAZINE HCL 20 MG/ML VL IV PRN (14:00)
--- NOTE | 2019-02-03 14:44 | NUR ---
RECEIVED REPORT FROM GRETA EDGE OF PACU
--- NOTE | 2019-02-03 15:05 | NUR ---
RECEIVED PT FROM PACU VIA BED, PT IS AWAKE AND ALERT, NO SIGNS OF DISTRESS AT THIS TIME, WILL CONTINUE TO MONITOR.
--- NOTE | 2019-02-03 15:10 | NUR ---
PT URINATED, NOTED STONES IN HER URINE, STONES SAVED IN THE SPECIMEN BOTTLE. WILL CONTINUE TO STRAIN THE URINE.
[2019-02-03] MEDS: SODIUM CHLORIDE 0.9% 1,000 ML IV SCH ×2 (15:35→22:54)
[2019-02-03] MEDS: GABAPENTIN 300 MG CAP PO SCH ×2 (15:35→22:00)
[2019-02-03] MEDS ORDERED: OME20T PO (15:53)
--- NOTE | 2019-02-03 16:37 | NUR ---
ANTIBIOTIC NICKOLAS GRAHAM MADE AWARE PT WAS GIVEN ANCEF IN OR, HE SAID TO START ROCEPHIN TOMORROW.
[2019-02-03 17:19] VITALS: BP 126/70
[2019-02-03] MEDS ORDERED: TAMSULOSIN HYDROCHLORIDE 0.4 MG CAP PO SCH (18:00)
--- NOTE | 2019-02-03 20:38 | NUR ---
Opening Shift Note Assumed care of patient, awake and alert. No S/S of distress/SOB or pain. Instructed on POC and to call for assist PRN, will continue to monitor for changes Q1hr and PRN.
[2019-02-03 21:30] VITALS: BP 106/53
[2019-02-03] MEDS: DOCUSATE SOD 100 MG CAP PO SCH (22:00)
[2019-02-04 04:59] VITALS: BP 128/78
[2019-02-04] MEDS: GABAPENTIN 300 MG CAP PO SCH ×2 (05:30→14:17)
--- NOTE | 2019-02-04 05:38 | NUR ---
Patient denies any flank or abdominal pain, c/o burning pain when voiding. patient is able to pass multiple renal stones, urine strained, patient is collecting renal stones in a specimen cup.
[2019-02-04] MEDS: SODIUM CHLORIDE 0.9% 1,000 ML IV SCH ×2 (06:28→15:20)
[2019-02-04 06:33] LABS: Basophils # (auto) 0 uL; Basophils % (auto) 0.6 % (0.0-2.0); Eosinophils # (auto) 0.1 uL; Eosinophils % (auto) 2.8 % (0.0-7.0); Hematocrit 34.1 % (36.0-46.0); Hemoglobin 11.1 g/dL (12.2-16.2); Lymphocytes # (auto) 1.3 uL; Mean Corpuscular Hemoglobin 27.6 pg (28.0-32.0); Mean Corpuscular Hgb Conc. 32.6 g/dL (32.0-36.0); Mean Corpuscular Volume 84.4 fL (80.0-100.0); Monocytes # (auto) 0.3 uL; Monocytes % (auto) 5.3 % (0.0-12.0); Neutrophils % (auto) 63.3 % (37.0-80.0); Platelet Count (auto) 236 10^3/uL (140-450); Red Blood Cells 4.04 10^6/uL (4.0-5.20); Red Cell Distribution Width 15.9 % (11.8-14.3); White Blood Cell 4.8 10^3/uL (4.4-10.8)
[2019-02-04 07:02] LABS: Potassium 4.2 mmol/L (3.5-5.1)
[2019-02-04 07:07] LABS: Calcium 8.3 mg/dL (8.5-10.1)
[2019-02-04 09:00] VITALS: BP 127/66
[2019-02-04] MEDS ORDERED: cefTRIAXone 1GM/50ML D5W 50 ML IV SCH (09:00)
--- NOTE | 2019-02-04 09:57 | NUR ---
Spoke with NICKOLAS Ellsworth at nurses station, she said pt is cleared to go home and will follow up with urology in 2 weeks. She ordered to send the stone to lab for stone analysis.
[2019-02-04] MEDS: DOCUSATE SOD 100 MG CAP PO SCH (10:00)
[2019-02-04] MEDS ORDERED: PANTOPRAZOLE 40 MG TAB PO SCH (10:00)
--- NOTE | 2019-02-04 10:34 | NUR ---
stone specimen sent to lab
[2019-02-04 12:49] VITALS: BP 125/64
--- NOTE | 2019-02-04 13:01 | NUR ---
DR. STALLWORTH MADE AWARE PT WAS CLEARED BY UROLOGY AND PT IS ASKING IF SHE CAN GO HOME. DR. STALLWORTH SAID HE WILL COME SEE THE PT SOON HE CAN.
--- NOTE | 2019-02-04 14:15 | NUR ---
PT SEEN BY DR. STALLWORTH PER DR. STALLWORTH PT CAN GO HOME AND WILL FOLLOW UP WITH DR. ROOT IN 2 WEEKS.
[2019-02-04 14:53] VITALS: BP 125/64
[2019-02-04] MEDS ORDERED: PNEUMOCOCCAL VACC POLYS 25 MCG/0.5 ML VIAL IM ONE (15:30)
--- NOTE | 2019-02-04 15:45 | NUR ---
Discharge instructions given as ordered. Encourage to follow up with DR. MIGUEL KILGORE ON FEBRUARY 12 AT 9:00, INSTRUCTED TO MAKE AN APPOINTMENT WITH DR. ROOT UROLOGY THROUGH HER PRIMARY DOCTOR, TELEPHONE NUMBER AND ADDRESS PROVIDED TO THE PT, PT VERBALIZED SHE WILL GET REFERRAL FROM HER PRIMARY DOCTOR . All questions and concerns addressed. Patient verbalized understanding. Medication reconciliation form completed and copy given to patient. PNEUMONIA vaccine given. IV removed with catheter intact, pressure dressing applied. Patient PREFERRED TO WALK to vehicle with all personal belongings, accompanied by . No distress noted at time of departure.
== END 2019-02-04 18:30 | disposition home or self-care (01) | DRG 691 ==
LOC: EDUNIT# 08:14 → ER 08:14 → OVERFLOW 10:49 → EAST 12:02
PROVIDERS: ADMIT Nurse Practitioner Acute Care; ATTEND Internal Medicine Pulmonary Disease
PROC: 0TF3XZZ Fragmentation in Right Kidney Pelvis, External Approach (ICD-10-PCS; principal; 2019-02-03 14:05)
DX: N13.2 Hydronephrosis with renal and ureteral calculous obstruction (principal); E44.1 Mild protein-calorie malnutrition; D64.9 Anemia, unspecified; K21.9 Gastro-esophageal reflux disease without esophagitis; E66.9 Obesity, unspecified; M19.90 Unspecified osteoarthritis, unspecified site; Z68.39 Body mass index [BMI] 39.0-39.9, adult; Z79.899 Other long term (current) drug therapy; Z87.442 Personal history of urinary calculi; Z98.84 Bariatric surgery status; Z98.51 Tubal ligation status; Z88.2 Allergy status to sulfonamides; Z88.5 Allergy status to narcotic agent; Z23 Encounter for immunization
CPT/HCPCS: 36415; 71045; 76775; 80048; 80053; 81001; 82360; 85025; 85610; 85730; 87081; 87086; 93005; 96374; 96375; G0378; J0690; J0696; J1885; J2250; J2704

== ENCOUNTER 2019-03-27 00:56 | Emergency (ER) | payer BC ==
[~2019-03-27] VITALS: Ht 165.1 cm; Wt 99.8 kg
[~2019-03-27 00:56] MED LIST changes: -NITR-52 PO; +OME20T PO
[2019-03-27 00:57] VITALS: BP 142/61
[2019-03-27] MEDS ORDERED: TRIAMCINOLONE 40MG/ML 1ML VIAL IX ONE (01:15)
[2019-03-27] MEDS ORDERED: LIDOCAINE 2%HCL (LOCAL ANESTH.) INJ 10ml MDV IJ ONE (01:15)
[2019-03-27] MEDS ORDERED: LIDOCAINE 1% HCL (LOCAL ANESTH.) INJ 20ML MDV IJ ONE (01:30)
== END 2019-03-27 01:55 | disposition home or self-care (01) ==
LOC: EEVIPCON 00:57 → ER 00:57
DX: M77.32 Calcaneal spur, left foot (principal); M72.2 Plantar fascial fibromatosis; Z87.442 Personal history of urinary calculi; Z88.2 Allergy status to sulfonamides
CPT/HCPCS: 20605; 73630; 99284; J2001; J3301

== ENCOUNTER → 2019-03-28 | Outpatient (CLI) | payer BC ==
[2019-03-28 08:31] LABS: Albumin 3.4 g/dL (3.4-5.0); Calcium 9.1 mg/dL (8.5-10.1); Magnesium 2.5 mg/dL (1.6-2.6); Potassium 3.9 mmol/L (3.5-5.1)
[2019-03-28 08:36] LABS: BUN/Creatinine Ratio 21.6; Bilirubin, Total 0.2 mg/dL (0.2-1.0); Total Protein 7.4 g/dL (6.4-8.2); Uric Acid 3.4 mg/dL (2.6-6.0)
[2019-03-28 08:42] LABS: Free T4 (Free Thyroxine) 0.95 ng/dL (0.89-1.76)
[2019-03-28 08:44] LABS: Urine Bacteria NONE SEEN /hpf (None Seen); Urine Hyaline Cast FEW /lpf (0 - 2); Urine Mucus FEW (None Seen); Urine Specific Gravity 1.025 (1.001-1.035); Urine WBC 3 /hpf (0 - 5)
[2019-03-28 08:47] LABS: Basophils # (auto) 0 uL; Basophils % (auto) 0.2 % (0.0-2.0); Eosinophils # (auto) 0 uL; Eosinophils % (auto) 0.4 % (0.0-7.0); Hematocrit 36.3 % (36.0-46.0); Hemoglobin 11.9 g/dL (12.2-16.2); Lymphocytes % (auto) 10.6 % (10.0-50.0); Mean Corpuscular Hemoglobin 27.6 pg (28.0-32.0); Mean Corpuscular Hgb Conc. 32.8 g/dL (32.0-36.0); Mean Corpuscular Volume 84.2 fL (80.0-100.0); Monocytes # (auto) 0.4 uL; Monocytes % (auto) 4.3 % (0.0-12.0); Neutrophils # (auto) 7.7 uL; Neutrophils % (auto) 84.5 % (37.0-80.0); Platelet Count (auto) 262 10^3/uL (140-450); Red Blood Cells 4.31 10^6/uL (4.0-5.20); Red Cell Distribution Width 16.8 % (11.8-14.3); White Blood Cell 9.1 10^3/uL (4.4-10.8)
[2019-03-28 08:49] LABS: Urine Blood Trace /uL (Negative)
== END | disposition home or self-care (01) ==
LOC: LAB 07:36
DX: Z76.89 Persons encountering health services in other specified circumstances (principal)
CPT/HCPCS: 36415; 80053; 80061; 81001; 82306; 82607; 83036; 83735; 84439; 84443; 84550; 85025; 85045

== ENCOUNTER 2019-04-13 05:17 | Emergency (ER) | payer BC, OTHER ==
[~2019-04-13] VITALS: Ht 165.1 cm; Wt 99.8 kg
[2019-04-13 06:35] VITALS: BP 120/64
[2019-04-14 08:56] LABS: Hepatitis B Surface Antibody Positive
[2019-04-14 14:30] LABS: Hepatitis B Surface Antigen Negative (Negative)
== END 2019-04-13 06:47 | disposition home or self-care (01) ==
LOC: ER 05:17
DX: S61.032A Puncture wound without foreign body of left thumb without damage to nail, initial encounter (principal); Z88.2 Allergy status to sulfonamides; Z88.8 Allergy status to other drugs, medicaments and biological substances; Z79.899 Other long term (current) drug therapy; W27.3XXA Contact with needle (sewing), initial encounter; Y93.89 Activity, other specified; Y92.89 Other specified places as the place of occurrence of the external cause; Y99.8 Other external cause status
CPT/HCPCS: 36415; 86703; 86706; 86803; 87340

== ENCOUNTER 2019-05-08 00:39 | Emergency (ER) | payer BC, OTHER ==
[~2019-05-08] VITALS: Ht 165.1 cm; Wt 99.8 kg
[2019-05-08 00:41] VITALS: BP 132/70
[2019-05-08] MEDS ORDERED: TRIAMCINOLONE 40MG/ML 1ML VIAL IM ONE (01:22)
[2019-05-08] MEDS ORDERED: METHOCARBAMOL 500 MG TAB PO ONE (01:22)
== END 2019-05-08 01:36 | disposition home or self-care (01) ==
LOC: ER 00:40 → EEVIPCON 00:40 → ER 01:36
DX: M51.26 Other intervertebral disc displacement, lumbar region (principal); Z88.6 Allergy status to analgesic agent; Z88.2 Allergy status to sulfonamides; Z90.89 Acquired absence of other organs; Z90.49 Acquired absence of other specified parts of digestive tract
CPT/HCPCS: 72131; 96372; 99284; J3301

== ENCOUNTER → 2019-06-12 | Outpatient (CLI) | payer BC | END | disposition home or self-care (01) | LOC: Rad HDHVI 08:16 | PROVIDERS: ATTEND Internal Medicine Cardiovascular Disease | DX: I34.0 Nonrheumatic mitral (valve) insufficiency (principal); R00.2 Palpitations; R07.9 Chest pain, unspecified | CPT/HCPCS: 93306 ==

== ENCOUNTER → 2019-06-19 | Outpatient (CLI) | payer BC ==
[~2019-06-19] VITALS: Ht 165.1 cm; Wt 101.6 kg
== END | disposition home or self-care (01) ==
LOC: Rad HDHVI 13:03
PROVIDERS: ATTEND Internal Medicine Cardiovascular Disease
DX: R00.2 Palpitations (principal); K21.9 Gastro-esophageal reflux disease without esophagitis
CPT/HCPCS: 78452; 93017; 96374; A9500

== ENCOUNTER 2019-09-01 23:34 | Emergency (ER) | payer BC ==
[~2019-09-01] VITALS: Ht 165.1 cm; Wt 99.8 kg
[2019-09-02 04:17] VITALS: BP 149/66
[2019-09-02] MEDS ORDERED: ONDANSETRON ODT 4 MG TAB PO ONE (04:30)
== END 2019-09-02 04:44 | disposition home or self-care (01) ==
LOC: ER 23:38 → MERGE 23:38 → ER 09-02 04:44
DX: S80.02XA Contusion of left knee, initial encounter (principal); S80.01XA Contusion of right knee, initial encounter; S16.1XXA Strain of muscle, fascia and tendon at neck level, initial encounter; R11.2 Nausea with vomiting, unspecified; R51 Headache; Z88.2 Allergy status to sulfonamides; Z88.8 Allergy status to other drugs, medicaments and biological substances; W10.9XXA Fall (on) (from) unspecified stairs and steps, initial encounter; Y93.89 Activity, other specified; Y92.89 Other specified places as the place of occurrence of the external cause; Y99.0 Civilian activity done for income or pay
CPT/HCPCS: 70450; 72125; 99284; Q0162

== ENCOUNTER 2020-01-11 14:00 | Emergency (ER) | payer BC, OTHER ==
[~2020-01-11] VITALS: Ht 175.3 cm; Wt 99.8 kg
[2020-01-11 14:30] VITALS: BP 138/70
[2020-01-11] MEDS ORDERED: ACETAMINOPHEN/CODEINE#3 (300/30mg) TAB PO ONE (14:45)
[2020-01-11] MEDS ORDERED: METHOCARBAMOL 500 MG TAB PO ONE (14:45)
== END 2020-01-11 16:03 | disposition home or self-care (01) ==
LOC: EEVIPCON 14:00 → ER 14:00
DX: S33.5XXA Sprain of ligaments of lumbar spine, initial encounter (principal); M54.16 Radiculopathy, lumbar region; Z87.442 Personal history of urinary calculi; Z88.2 Allergy status to sulfonamides; Z88.8 Allergy status to other drugs, medicaments and biological substances; W23.0XXA Caught, crushed, jammed, or pinched between moving objects, initial encounter; Y93.89 Activity, other specified; Y92.89 Other specified places as the place of occurrence of the external cause; Y99.8 Other external cause status
CPT/HCPCS: 72131

== ENCOUNTER → 2020-03-27 | Outpatient (CLI) | payer OTHER | END | disposition home or self-care (01) | LOC: LAB 13:03 | PROVIDERS: ATTEND Nurse Practitioner Family | DX: U07.1 COVID-19 (principal) | CPT/HCPCS: 87635 ==

== ENCOUNTER 2020-03-28 11:24 | Emergency (ER) | payer BC, OTHER ==
[~2020-03-28] VITALS: Ht 165.1 cm; Wt 90.7 kg
[2020-03-28 11:27] VITALS: BP 100/56
== END 2020-03-28 13:29 | disposition home or self-care (01) ==
LOC: ER 11:24
DX: J02.9 Acute pharyngitis, unspecified (principal); R50.9 Fever, unspecified; Z20.828 Contact with and (suspected) exposure to other viral communicable diseases
CPT/HCPCS: 71045

== ENCOUNTER → 2020-07-09 | Outpatient (CLI) | payer BC ==
[2020-07-09 11:41] LABS: Urine Bacteria NONE SEEN /hpf (None Seen); Urine Blood Negative /uL (Negative); Urine Mucus FEW (None Seen); Urine Specific Gravity 1.029 (1.001-1.035); Urine WBC 3 /hpf (0 - 5)
[2020-07-09 11:50] LABS: INR 1.02 (0.9-1.15)
[2020-07-09 11:52] LABS: Basophils # (auto) 0 10 ^3/uL (0-0.2); Basophils % (auto) 0.6 % (0.0-2.0); Eosinophils # (auto) 0.1 10 ^3/uL (0-0.8); Eosinophils % (auto) 1.7 % (0.0-7.0); Hematocrit 36.3 % (36.0-46.0); Hemoglobin 11.8 g/dL (12.2-16.2); Lymphocytes # (auto) 1.1 10 ^3/uL (0.4-5.4); Lymphocytes % (auto) 21.5 % (10.0-50.0); Mean Corpuscular Hemoglobin 27.4 pg (28.0-32.0); Mean Corpuscular Hgb Conc. 32.4 g/dL (32.0-36.0); Mean Corpuscular Volume 84.6 fL (80.0-100.0); Monocytes # (auto) 0.3 10 ^3/uL (0-1.3); Monocytes % (auto) 5.3 % (0.0-12.0); Neutrophils # (auto) 3.7 10 ^3/uL (1.6-8.6); Neutrophils % (auto) 70.9 % (37.0-80.0); Platelet Count (auto) 256 10^3/uL (140-450); Red Blood Cells 4.29 10^6/uL (4.0-5.20); White Blood Cell 5.2 10^3/uL (4.4-10.8)
[2020-07-09 12:03] LABS: Magnesium 2.7 mg/dL (1.6-2.6); Potassium 4.1 mmol/L (3.5-5.1)
[2020-07-09 12:11] LABS: Albumin 3.5 g/dL (3.4-5.0); BUN/Creatinine Ratio 24.6; Bilirubin, Total 0.5 mg/dL (0.2-1.0); Phosphorus 3.4 mg/dL (2.5-4.90); Total Protein 6.9 g/dL (6.4-8.2); Uric Acid 4.4 mg/dL (2.6-6.0)
[2020-07-09 12:17] LABS: Free T3 2.83 pg/mL (2.3-4.2); Free T4 (Free Thyroxine) 1.04 ng/dL (0.89-1.76); T3 Total 1.1 ng/mL (0.60-1.81)
== END | disposition home or self-care (01) ==
LOC: LAB 11:11
DX: Z13.21 Encounter for screening for nutritional disorder (principal); D51.9 Vitamin B12 deficiency anemia, unspecified; R82.90 Unspecified abnormal findings in urine; R79.9 Abnormal finding of blood chemistry, unspecified; R74.9 Abnormal serum enzyme level, unspecified; E07.9 Disorder of thyroid, unspecified; E78.2 Mixed hyperlipidemia; Z13.29 Encounter for screening for other suspected endocrine disorder
CPT/HCPCS: 36415; 80053; 80061; 81001; 82306; 82607; 83036; 83540; 83615; 83735; 84100; 84439; 84443; 84480; 84481; 84550; 85025; 85610; 87086

== ENCOUNTER 2021-01-02 09:39 | Emergency (ER) | payer BC ==
[~2021-01-02] VITALS: Ht 165.1 cm; Wt 86.2 kg
[2021-01-02 09:39] VITALS: BP 141/78
== END 2021-01-02 10:16 | disposition home or self-care (01) ==
LOC: ER 09:39 → EEVIPCON 09:39 → ER 10:16
DX: Z20.822 Contact with and (suspected) exposure to COVID-19 (principal); Z87.442 Personal history of urinary calculi; Z98.51 Tubal ligation status; Z98.890 Other specified postprocedural states; Z79.899 Other long term (current) drug therapy; Z88.8 Allergy status to other drugs, medicaments and biological substances; Z88.2 Allergy status to sulfonamides
CPT/HCPCS: 99283; C9803; U0003

== ENCOUNTER 2021-02-09 00:25 | Emergency (ER) | payer BC ==
[~2021-02-09] VITALS: Ht 165.1 cm; Wt 86.2 kg
[2021-02-09 00:26] VITALS: BP 139/68
[2021-02-09 01:50] LABS: Urine Bacteria FEW /hpf (None Seen); Urine Blood Negative /uL (Negative); Urine Hyaline Cast FEW /lpf (0 - 2); Urine Mucus FEW (None Seen); Urine Specific Gravity 1.026 (1.001-1.035); Urine WBC 8 /hpf (0 - 5)
[2021-02-09] MEDS ORDERED: cefTRIAXone 1GM/50ML D5W 50 ML IV ONE ×2 (02:00→02:04)
[2021-02-09] MEDS ORDERED: TAMSULOSIN HYDROCHLORIDE 0.4 MG CAP PO ONE (02:00)
[2021-02-09] MEDS ORDERED: SODIUM CHLORIDE 0.9% 1,000 ML IV ONE (02:00)
== END 2021-02-09 02:43 | disposition home or self-care (01) ==
LOC: ER 00:27 → EEVIPCON 00:27 → ER 02:43
DX: N20.0 Calculus of kidney (principal); N39.0 Urinary tract infection, site not specified
CPT/HCPCS: 74176; 81001; 96365; 99284; J0696

== ENCOUNTER → 2021-02-24 | Outpatient (CLI) | payer BC ==
[2021-02-24 09:40] LABS: Basophils # (auto) 0 10 ^3/uL (0-0.2); Basophils % (auto) 0.6 % (0.0-2.0); Eosinophils # (auto) 0.1 10 ^3/uL (0-0.8); Eosinophils % (auto) 2.1 % (0.0-7.0); Hematocrit 35.6 % (36.0-46.0); Hemoglobin 11.9 g/dL (12.2-16.2); Lymphocytes # (auto) 1.3 10 ^3/uL (0.4-5.4); Lymphocytes % (auto) 22.9 % (10.0-50.0); Mean Corpuscular Hemoglobin 28.2 pg (28.0-32.0); Mean Corpuscular Hgb Conc. 33.5 g/dL (32.0-36.0); Mean Corpuscular Volume 84.2 fL (80.0-100.0); Monocytes # (auto) 0.3 10 ^3/uL (0-1.3); Monocytes % (auto) 5.6 % (0.0-12.0); Neutrophils # (auto) 3.8 10 ^3/uL (1.6-8.6); Neutrophils % (auto) 68.8 % (37.0-80.0); Platelet Count (auto) 243 10^3/uL (140-450); Red Blood Cells 4.22 10^6/uL (4.0-5.20); Red Cell Distribution Width 16.2 % (11.8-14.3); White Blood Cell 5.6 10^3/uL (4.4-10.8)
[2021-02-24 10:53] LABS: Magnesium 2.5 mg/dL (1.6-2.6); Potassium 4.2 mmol/L (3.5-5.1)
[2021-02-24 11:00] LABS: Folate (Folic Acid) 23.72 ng/mL (5.38-24)
[2021-02-24 11:05] LABS: Albumin 3.5 g/dL (3.4-5.0); BUN/Creatinine Ratio 23.5; Bilirubin, Total 0.4 mg/dL (0.2-1.0); Calcium 8.9 mg/dL (8.5-10.1)
== END | disposition home or self-care (01) ==
LOC: LAB 09:11
PROVIDERS: ATTEND Family Medicine
DX: D51.9 Vitamin B12 deficiency anemia, unspecified (principal); R68.89 Other general symptoms and signs; R94.6 Abnormal results of thyroid function studies; R73.09 Other abnormal glucose; E55.9 Vitamin D deficiency, unspecified; R79.89 Other specified abnormal findings of blood chemistry; R82.991 Hypocitraturia; E78.49 Other hyperlipidemia
CPT/HCPCS: 36415; 80053; 80061; 82306; 82607; 82746; 83036; 83735; 84443; 85025

== ENCOUNTER 2021-04-02 13:12 | Emergency (ER) | payer BC, OTHER ==
[~2021-04-02] VITALS: Ht 165.1 cm; Wt 95.3 kg
[2021-04-02 13:28] VITALS: BP 153/71
[2021-04-02] MEDS ORDERED: LORazepam 2MG/ML-1ML VIAL IM ONE (13:30)
== END 2021-04-02 15:25 | disposition home or self-care (01) ==
LOC: EEVIPCON 13:12 → ER 13:12
DX: F40.240 Claustrophobia (principal); Z02.89 Encounter for other administrative examinations; Z88.2 Allergy status to sulfonamides; Z88.8 Allergy status to other drugs, medicaments and biological substances; Z79.899 Other long term (current) drug therapy; Z87.442 Personal history of urinary calculi; Z98.890 Other specified postprocedural states; Z90.89 Acquired absence of other organs
CPT/HCPCS: 96372; 99283; J2060

== ENCOUNTER → 2021-04-28 | Outpatient (CLI) | payer BC ==
[2021-04-28 13:57] LABS: Urine Bacteria FEW /hpf (None Seen); Urine Blood Negative /uL (Negative); Urine Specific Gravity 1.004 (1.001-1.035); Urine WBC 8 /hpf (0 - 5)
== END | disposition home or self-care (01) ==
LOC: LAB 12:40
PROVIDERS: ATTEND Nurse Practitioner Family
DX: N39.0 Urinary tract infection, site not specified (principal); R30.0 Dysuria
CPT/HCPCS: 81001; 87086

== ENCOUNTER 2021-05-13 03:45 | Emergency (ER) | payer BC ==
[~2021-05-13] VITALS: Ht 165.1 cm; Wt 92.5 kg
[2021-05-13 04:37] LABS: Urine Bacteria FEW /hpf (None Seen); Urine Blood Negative /uL (Negative); Urine Mucus FEW (None Seen); Urine Specific Gravity 1.012 (1.001-1.035); Urine WBC 31 /hpf (0 - 5); Urine WBC Clumps PRESENT /hpf (None Seen)
[2021-05-13 06:01] VITALS: BP 138/65
== END 2021-05-13 06:02 | disposition home or self-care (01) ==
LOC: ER 03:45
DX: N39.0 Urinary tract infection, site not specified (principal); Z90.89 Acquired absence of other organs; Z98.51 Tubal ligation status; Z88.6 Allergy status to analgesic agent; Z88.8 Allergy status to other drugs, medicaments and biological substances
CPT/HCPCS: 74176; 81001; 87086; 87088; 87186; 99284; J7030

== ENCOUNTER → 2021-06-08 | Outpatient (CLI) | payer BC ==
[2021-06-08 15:51] LABS: Basophils # (auto) 0 10 ^3/uL (0-0.2); Basophils % (auto) 0.3 % (0.0-2.0); Eosinophils # (auto) 0.2 10 ^3/uL (0-0.8); Eosinophils % (auto) 3.1 % (0.0-7.0); Hemoglobin 11.3 g/dL (12.2-16.2); Lymphocytes # (auto) 1.4 10 ^3/uL (0.4-5.4); Mean Corpuscular Hemoglobin 27.1 pg (28.0-32.0); Mean Corpuscular Hgb Conc. 32.3 g/dL (32.0-36.0); Monocytes # (auto) 0.3 10 ^3/uL (0-1.3); Monocytes % (auto) 6.2 % (0.0-12.0); Neutrophils # (auto) 3.1 10 ^3/uL (1.6-8.6); Neutrophils % (auto) 61.4 % (37.0-80.0); Red Blood Cells 4.16 10^6/uL (4.0-5.20); Red Cell Distribution Width 15.6 % (11.8-14.3)
[2021-06-08 15:54] LABS: Urine Bacteria NONE SEEN /hpf (None Seen); Urine Blood Negative /uL (Negative); Urine Specific Gravity 1.012 (1.001-1.035); Urine WBC 4 /hpf (0 - 5)
[2021-06-08 16:13] LABS: Albumin 3.3 g/dL (3.4-5.0); Calcium 8.9 mg/dL (8.5-10.1); Magnesium 2.4 mg/dL (1.6-2.6); Potassium 3.7 mmol/L (3.5-5.1); Uric Acid 4.5 mg/dL (2.6-6.0)
[2021-06-08 16:17] LABS: BUN/Creatinine Ratio 20.3; Bilirubin, Total 0.3 mg/dL (0.2-1.0); Total Protein 6.8 g/dL (6.4-8.2)
[2021-06-08 16:20] LABS: INR 0.99 (0.9-1.15)
[2021-06-08 16:52] LABS: Free T3 3.44 pg/mL (2.3-4.2)
== END | disposition home or self-care (01) ==
LOC: LAB 15:29
PROVIDERS: ATTEND Internal Medicine
DX: E61.2 Magnesium deficiency (principal); D51.9 Vitamin B12 deficiency anemia, unspecified; R73.09 Other abnormal glucose; R94.6 Abnormal results of thyroid function studies; E55.9 Vitamin D deficiency, unspecified; E79.0 Hyperuricemia without signs of inflammatory arthritis and tophaceous disease; R82.89 Other abnormal findings on cytological and histological examination of urine; E78.49 Other hyperlipidemia; R82.998 Other abnormal findings in urine; R68.89 Other general symptoms and signs
CPT/HCPCS: 36415; 80053; 80061; 81001; 82306; 82607; 83036; 83735; 84481; 84550; 85025; 85610; 87086

== ENCOUNTER → 2021-06-17 | Outpatient (CLI) | payer BC, OTHER | END | disposition home or self-care (01) | LOC: Rad HDHVI 16:02 | PROVIDERS: ATTEND Internal Medicine Cardiovascular Disease | DX: R42 Dizziness and giddiness (principal) | CPT/HCPCS: 93306 ==

== ENCOUNTER 2021-06-18 23:33 | Emergency (ER) | payer BC ==
[~2021-06-18] VITALS: Ht 165.1 cm; Wt 93.9 kg
[2021-06-19 00:43] VITALS: BP 133/43
== END 2021-06-19 01:04 | disposition home or self-care (01) ==
LOC: EEVIPCON 23:33 → ER 23:33
DX: Z01.818 Encounter for other preprocedural examination (principal); Z20.822 Contact with and (suspected) exposure to COVID-19; Z98.51 Tubal ligation status; Z88.2 Allergy status to sulfonamides
CPT/HCPCS: 99283; C9803; U0003

== ENCOUNTER 2021-09-30 13:58 | Emergency (ER) | payer BC, OTHER ==
[~2021-09-30] VITALS: Ht 165.1 cm; Wt 90.7 kg
[2021-09-30 14:05] VITALS: BP 116/77
== END 2021-09-30 15:56 | disposition left against medical advice (07) ==
LOC: EEVIPCON 13:58 → ER 13:58
DX: U07.1 COVID-19 (principal); Z53.21 Procedure and treatment not carried out due to patient leaving prior to being seen by health care provider

== ENCOUNTER → 2021-11-09 | Outpatient (CLI) | payer BC ==
[2021-11-09 08:46] LABS: Urine Bacteria FEW /hpf (None Seen); Urine Blood 1+ /uL (Negative); Urine Mucus FEW (None Seen); Urine Specific Gravity 1.027 (1.001-1.035); Urine WBC 5 /hpf (0 - 5)
[2021-11-09 09:18] LABS: Potassium 3.4 mmol/L (3.5-5.1)
[2021-11-09 09:28] LABS: % Iron Saturation 6.9 % (15-50)
[2021-11-09 09:29] LABS: Albumin 3.6 g/dL (3.4-5.0); BUN/Creatinine Ratio 24.6; Bilirubin, Total 0.7 mg/dL (0.2-1.0); Calcium 9.2 mg/dL (8.5-10.1); Total Protein 7.2 g/dL (6.4-8.2)
[2021-11-09 10:55] LABS: Free T4 (Free Thyroxine) 1.09 ng/dL (0.89-1.76)
[2021-11-09 10:56] LABS: Follicle Stimulating Hormone 67.27 IU/L (SEE BELOW)
[2021-11-09 12:18] LABS: Leuteinizing Hormone 34.8 IU/L
== END | disposition home or self-care (01) ==
LOC: LAB 07:50
PROVIDERS: ATTEND Internal Medicine
DX: E79.0 Hyperuricemia without signs of inflammatory arthritis and tophaceous disease (principal); E78.49 Other hyperlipidemia; R68.89 Other general symptoms and signs; R73.09 Other abnormal glucose; E61.2 Magnesium deficiency; R94.4 Abnormal results of kidney function studies; R82.998 Other abnormal findings in urine; E55.9 Vitamin D deficiency, unspecified; R82.79 Other abnormal findings on microbiological examination of urine; D51.9 Vitamin B12 deficiency anemia, unspecified; R82.90 Unspecified abnormal findings in urine
CPT/HCPCS: 36415; 80053; 80061; 81001; 82306; 82607; 82672; 83001; 83002; 83036; 83540; 83550; 84144; 84439; 84443

== ENCOUNTER 2022-01-09 06:57 | Emergency (ER) | payer BC ==
[~2022-01-09] VITALS: Ht 165.1 cm; Wt 90.7 kg
[2022-01-09 07:05] VITALS: BP 147/59
== END 2022-01-09 10:00 | disposition home or self-care (01) ==
LOC: ER 06:57
DX: R10.9 Unspecified abdominal pain (principal); N20.0 Calculus of kidney; Z98.51 Tubal ligation status; Z90.89 Acquired absence of other organs; Z88.2 Allergy status to sulfonamides; Z88.8 Allergy status to other drugs, medicaments and biological substances; Z53.29 Procedure and treatment not carried out because of patient's decision for other reasons
CPT/HCPCS: 74176

== ENCOUNTER → 2022-01-23 | Outpatient (CLI) | payer BC ==
[~2022-01-23] VITALS: Ht 165.1 cm; Wt 92.5 kg
== END | disposition home or self-care (01) ==
LOC: Rad HDHVI 13:56
PROVIDERS: ATTEND Internal Medicine Cardiovascular Disease
DX: R00.0 Tachycardia, unspecified (principal); R00.1 Bradycardia, unspecified; R42 Dizziness and giddiness; R07.9 Chest pain, unspecified; Z82.49 Family history of ischemic heart disease and other diseases of the circulatory system
CPT/HCPCS: 78452; 93017; 96374; A9500

== ENCOUNTER → 2022-05-31 | Outpatient (CLI) | payer BC ==
[2022-05-31 07:51] LABS: Basophils # (auto) 0 10 ^3/uL (0-0.2); Basophils % (auto) 0.5 % (0.0-2.0); Eosinophils # (auto) 0.1 10 ^3/uL (0-0.8); Hemoglobin 11.2 g/dL (12.2-16.2); Lymphocytes # (auto) 1.4 10 ^3/uL (0.4-5.4); Monocytes # (auto) 0.3 10 ^3/uL (0-1.3); White Blood Cell 5.4 10^3/uL (4.4-10.8)
[2022-05-31 07:52] LABS: Eosinophils % (auto) 1.6 % (0.0-7.0); Hematocrit 35.6 % (36.0-46.0); Lymphocytes % (auto) 26.2 % (10.0-50.0); Mean Corpuscular Hemoglobin 25.4 pg (28.0-32.0); Mean Corpuscular Hgb Conc. 31.5 g/dL (32.0-36.0); Mean Corpuscular Volume 80.6 fL (80.0-100.0); Monocytes % (auto) 5.9 % (0.0-12.0); Neutrophils # (auto) 3.6 10 ^3/uL (1.6-8.6); Neutrophils % (auto) 65.8 % (37.0-80.0); Red Blood Cells 4.42 10^6/uL (4.0-5.20)
[2022-05-31 07:55] LABS: Urine Bacteria NONE SEEN /hpf (None Seen); Urine Blood TRACE /uL (Negative); Urine Specific Gravity 1.004 (1.001-1.035); Urine WBC <1 /hpf (0 - 5)
[2022-05-31 08:39] LABS: Albumin 3.8 g/dL (3.4-5.0); Calcium 9.3 mg/dL (8.5-10.1); Magnesium 2.2 mg/dL (1.6-2.6); Potassium 4.1 mmol/L (3.5-5.1)
[2022-05-31 08:45] LABS: BUN/Creatinine Ratio 19.4; Bilirubin, Total 0.3 mg/dL (0.2-1.0)
[2022-05-31 09:33] LABS: Ferritin 4.6 ng/mL (10-322); Free T3 3.79 pg/mL (2.3-4.2)
[2022-05-31 09:34] LABS: Folate (Folic Acid) 18.98 ng/mL (5.38-24)
[2022-06-01 11:10] LABS: T3 Total 1.35 ng/mL (0.60-1.81)
== END | disposition home or self-care (01) ==
LOC: LAB 07:30
PROVIDERS: ATTEND Internal Medicine
DX: Z01.812 Encounter for preprocedural laboratory examination (principal); Z12.11 Encounter for screening for malignant neoplasm of colon; R79.89 Other specified abnormal findings of blood chemistry; R68.89 Other general symptoms and signs; R82.991 Hypocitraturia; E78.49 Other hyperlipidemia; R51.9 Headache, unspecified; R73.09 Other abnormal glucose; R94.6 Abnormal results of thyroid function studies; E55.9 Vitamin D deficiency, unspecified; E61.2 Magnesium deficiency; R53.83 Other fatigue
CPT/HCPCS: 36415; 80053; 80061; 81001; 82306; 82607; 82728; 82746; 83036; 83540; 83550; 83735; 83970; 84439; 84443; 84480; 84481; 85025; 87086

== ENCOUNTER 2022-07-20 05:38 | Emergency (ER) | payer BC ==
[~2022-07-20] VITALS: Ht 165.1 cm; Wt 97.2 kg
[2022-07-20 05:50] VITALS: BP 140/94
[2022-07-20] MEDS ORDERED: TRAM50TA2 PO (06:48)
[2022-07-20 06:59] LABS: Urine Bacteria NONE SEEN /hpf (None Seen); Urine Mucus FEW (None Seen); Urine WBC 4 /hpf (0 - 5)
[2022-07-20 07:01] LABS: Urine Specific Gravity 1.025 (1.001-1.035)
[2022-07-20 07:02] LABS: Urine Blood Trace /uL (Negative)
[2022-07-20] MEDS ORDERED: NITR-87 PO (21:49)
== END 2022-07-20 08:51 | disposition home or self-care (01) ==
LOC: ER 05:38 → EEVIPCON 05:38 → ER 07:05
DX: N20.0 Calculus of kidney (principal); Z90.89 Acquired absence of other organs; Z98.51 Tubal ligation status; Z88.2 Allergy status to sulfonamides; Z88.8 Allergy status to other drugs, medicaments and biological substances
CPT/HCPCS: 74176; 81001

== ENCOUNTER → 2022-10-17 | Outpatient (CLI) | payer BC ==
[~2022-10-17] MED LIST changes: +NITR-87 PO; +TRAM50TA2 PO
[2022-10-17 13:52] LABS: Basophils # (auto) 0 10 ^3/uL (0-0.2); Basophils % (auto) 0.6 % (0.0-2.0); Eosinophils # (auto) 0.1 10 ^3/uL (0-0.8); Eosinophils % (auto) 1.6 % (0.0-7.0); Hematocrit 39.8 % (36.0-46.0); Hemoglobin 12.8 g/dL (12.2-16.2); Lymphocytes # (auto) 1.6 10 ^3/uL (0.4-5.4); Lymphocytes % (auto) 29.8 % (10.0-50.0); Mean Corpuscular Hgb Conc. 32.1 g/dL (32.0-36.0); Monocytes # (auto) 0.3 10 ^3/uL (0-1.3); Monocytes % (auto) 5.1 % (0.0-12.0); Neutrophils # (auto) 3.4 10 ^3/uL (1.6-8.6); Neutrophils % (auto) 62.9 % (37.0-80.0); Red Blood Cells 4.73 10^6/uL (4.0-5.20); Red Cell Distribution Width 16.4 % (11.8-14.3); White Blood Cell 5.4 10^3/uL (4.4-10.8)
[2022-10-17 14:16] LABS: Albumin 3.8 g/dL (3.4-5.0); Calcium 9.2 mg/dL (8.5-10.1); Potassium 3.8 mmol/L (3.5-5.1)
[2022-10-17 14:17] LABS: % Iron Saturation 11.5 % (15-50)
[2022-10-17 14:19] LABS: Urine Bacteria NONE SEEN /hpf (None Seen); Urine Blood 1+ /uL (Negative); Urine Specific Gravity 1.017 (1.001-1.035); Urine WBC 5 /hpf (0 - 5)
[2022-10-17 14:22] LABS: BUN/Creatinine Ratio 14.7; Bilirubin, Total 0.6 mg/dL (0.2-1.0); Total Protein 7.5 g/dL (6.4-8.2)
[2022-10-17 14:32] LABS: Free T4 (Free Thyroxine) 1.19 ng/dL (0.89-1.76)
[2022-10-17 14:33] LABS: Free T3 3.31 pg/mL (2.3-4.2); T3 Total 1.28 ng/mL (0.60-1.81)
[2022-10-17 16:25] LABS: Folate (Folic Acid) > 24.00 ng/mL (5.38-24)
== END | disposition home or self-care (01) ==
LOC: LAB 13:34
PROVIDERS: ATTEND Internal Medicine
DX: Z12.11 Encounter for screening for malignant neoplasm of colon (principal); Z03.818 Encounter for observation for suspected exposure to other biological agents ruled out; E79.0 Hyperuricemia without signs of inflammatory arthritis and tophaceous disease; R94.6 Abnormal results of thyroid function studies; E55.9 Vitamin D deficiency, unspecified; R51.9 Headache, unspecified; E61.2 Magnesium deficiency; R53.83 Other fatigue; E11.9 Type 2 diabetes mellitus without complications; E78.49 Other hyperlipidemia; R82.991 Hypocitraturia; R68.89 Other general symptoms and signs
CPT/HCPCS: 36415; 80053; 80061; 81001; 82306; 82607; 82746; 83036; 83540; 83550; 84439; 84443; 84480; 84481; 85025; 85049; 87086

== ENCOUNTER 2022-10-26 03:23 | Emergency (ER) | payer BC, OTHER ==
[~2022-10-26] VITALS: Ht 165.1 cm; Wt 99.0 kg
[2022-10-26 03:41] VITALS: BP 113/55
[2022-10-26] MEDS ORDERED: cefTRIAXone 1GM/50ML D5W 50 ML IV ONE ×2 (03:45)
[2022-10-26 04:03] LABS: Albumin 3.6 g/dL (3.4-5.0); BUN/Creatinine Ratio 24.3; Potassium 4.1 mmol/L (3.5-5.1)
[2022-10-26 04:05] LABS: Basophils # (auto) 0 10 ^3/uL (0-0.2); Basophils % (auto) 0.4 % (0.0-2.0); Eosinophils # (auto) 0.1 10 ^3/uL (0-0.8); Eosinophils % (auto) 2.4 % (0.0-7.0); Hematocrit 36.3 % (36.0-46.0); Lymphocytes # (auto) 1.8 10 ^3/uL (0.4-5.4); Mean Corpuscular Hemoglobin 27.6 pg (28.0-32.0); Mean Corpuscular Volume 83.7 fL (80.0-100.0); Monocytes # (auto) 0.4 10 ^3/uL (0-1.3); Monocytes % (auto) 7.7 % (0.0-12.0); Neutrophils # (auto) 2.9 10 ^3/uL (1.6-8.6); Neutrophils % (auto) 55.5 % (37.0-80.0); Nucleated Red Blood Cells % 0.1 %; Red Blood Cells 4.34 10^6/uL (4.0-5.20); Red Cell Distribution Width 16.2 % (11.8-14.3); White Blood Cell 5.3 10^3/uL (4.4-10.8)
[2022-10-26 04:06] LABS: Bilirubin, Total 0.4 mg/dL (0.2-1.0); Total Protein 6.8 g/dL (6.4-8.2)
[2022-10-26] MEDS ORDERED: AMOX-277 PO ×2 (04:12)
[2022-10-27] MEDS ORDERED: AMOX-277 PO (02:21)
== END 2022-10-26 04:15 | disposition home or self-care (01) ==
LOC: ER 03:23 → EEVIPCON 03:23 → ER 04:15
DX: S61.259A Open bite of unspecified finger without damage to nail, initial encounter (principal); Z88.2 Allergy status to sulfonamides; Z88.8 Allergy status to other drugs, medicaments and biological substances; Z79.899 Other long term (current) drug therapy; Z98.890 Other specified postprocedural states; Z90.89 Acquired absence of other organs; Z98.51 Tubal ligation status; W55.01XA Bitten by cat, initial encounter; Y93.89 Activity, other specified; Y92.89 Other specified places as the place of occurrence of the external cause; Y99.8 Other external cause status
CPT/HCPCS: 36415; 80053; 85025; 96365; 99284; J0696

== ENCOUNTER 2022-11-06 08:23 | Emergency (ER) | payer BC, OTHER ==
[~2022-11-06] VITALS: Ht 165.1 cm; Wt 98.8 kg
[~2022-11-06 08:23] MED LIST changes: +AMOX-277 PO
[2022-11-06 08:33] VITALS: BP 143/71
[2022-11-06] MEDS ORDERED: LORazepam 2MG/ML-1ML VIAL IM ONE (08:45)
== END 2022-11-06 09:15 | disposition home or self-care (01) ==
LOC: ER 08:23 → EEVIPCON 08:23 → ER 09:15
DX: F41.9 Anxiety disorder, unspecified (principal); Z90.89 Acquired absence of other organs; Z98.51 Tubal ligation status; Z88.6 Allergy status to analgesic agent; Z88.2 Allergy status to sulfonamides
CPT/HCPCS: 96372; 99283; J2060

== ENCOUNTER → 2023-04-06 | Outpatient (CLI) | payer BC ==
[~2023-04-06] MED LIST changes: -AMOX-277 PO; +AMOX875T4 PO; +GABA-1250 PO; -GABA300C10 PO
[2023-04-06 10:34] LABS: Basophils # (auto) 0 10 ^3/uL (0-0.2); Basophils % (auto) 0.5 % (0.0-2.0); Eosinophils # (auto) 0.1 10 ^3/uL (0-0.8); Eosinophils % (auto) 1.8 % (0.0-7.0); Hematocrit 36.5 % (36.0-46.0); Hemoglobin 11.9 g/dL (12.2-16.2); Lymphocytes # (auto) 1.5 10 ^3/uL (0.4-5.4); Lymphocytes % (auto) 27.3 % (10.0-50.0); Mean Corpuscular Hgb Conc. 32.5 g/dL (32.0-36.0); Mean Corpuscular Volume 83.2 fL (80.0-100.0); Monocytes # (auto) 0.3 10 ^3/uL (0-1.3); Monocytes % (auto) 4.8 % (0.0-12.0); Neutrophils # (auto) 3.6 10 ^3/uL (1.6-8.6); Neutrophils % (auto) 65.6 % (37.0-80.0); Red Blood Cells 4.39 10^6/uL (4.0-5.20); Red Cell Distribution Width 15.5 % (11.8-14.3); White Blood Cell 5.6 10^3/uL (4.4-10.8)
[2023-04-06 11:14] LABS: Potassium 3.7 mmol/L (3.5-5.1)
[2023-04-06 11:21] LABS: Folate (Folic Acid) > 24.00 ng/mL (5.38-24)
[2023-04-06 11:24] LABS: Albumin 3.5 g/dL (3.4-5.0); BUN/Creatinine Ratio 17.1 (10.0-20.0); Bilirubin, Total 0.5 mg/dL (0.2-1.0); Calcium 8.8 mg/dL (8.5-10.1); Magnesium 2.4 mg/dL (1.6-2.6); Uric Acid 4.6 mg/dL (2.6-6.0)
== END | disposition home or self-care (01) ==
LOC: LAB 10:15
PROVIDERS: ATTEND Internal Medicine
DX: E78.41 Elevated Lipoprotein(a) (principal); R68.84 Jaw pain; R73.09 Other abnormal glucose; E61.2 Magnesium deficiency; E79.0 Hyperuricemia without signs of inflammatory arthritis and tophaceous disease; E55.9 Vitamin D deficiency, unspecified; D51.9 Vitamin B12 deficiency anemia, unspecified; R82.991 Hypocitraturia; R82.90 Unspecified abnormal findings in urine; R82.79 Other abnormal findings on microbiological examination of urine; R94.6 Abnormal results of thyroid function studies
CPT/HCPCS: 36415; 80053; 80061; 82306; 82607; 82746; 83036; 83735; 84443; 84550; 85025

== ENCOUNTER 2023-09-20 04:18 | Emergency (ER) | payer BC, OTHER ==
[~2023-09-20] VITALS: Ht 165.1 cm; Wt 100.0 kg
[2023-09-20] MEDS ORDERED: KETOROLAC TROMETH 30 MG/ML 1ML VIAL IV ONE (04:30)
[2023-09-20] MEDS ORDERED: ONDANSETRON HCL 4 MG/2 ML VIAL IV ONE (04:30)
[2023-09-20] MEDS ORDERED: SODIUM CHLORIDE 0.9% 1,000 ML IV ONE (04:30)
[2023-09-20 05:12] LABS: Urine Bacteria MANY /hpf (None Seen); Urine Blood TRACE /uL (Negative); Urine Clarity Clear (Clear); Urine Color Yellow (Yellow); Urine Mucus FEW (None Seen); Urine Protein, UAD Negative (Negative); Urine Specific Gravity 1.018 (1.001-1.035); Urine Urobilinogen Normal (Negative); Urine WBC 14 /hpf (0 - 5); Urine pH 5.5 (5.0-8.0)
[2023-09-20 05:34] LABS: Alanine Aminotransferase 17 U/L (7-40); Albumin 4.4 g/dL (3.2-4.8); Alkaline Phosphatase 113 U/L (46-116); Anion Gap 7 (5-15); Aspartate Aminotransferase 17 U/L (13-40); BUN/Creatinine Ratio 15.4 (10.0-20.0); Blood Urea Nitrogen 12 mg/dL (9-23); Carbon Dioxide 24 mmol/L (20-30); Chloride 106 mmol/L (98-107); Glucose 94 mg/dL (74-106); Potassium 4.1 mmol/L (3.5-5.1); Sodium 137 mmol/L (136-145)
[2023-09-20 05:35] LABS: Bilirubin, Total 0.3 mg/dL (0.2-1.0); Total Protein 7.1 g/dL (5.7-8.2)
[2023-09-20 05:51] LABS: Basophils # (auto) 0 10 ^3/uL (0-0.2); Eosinophils # (auto) 0.1 10 ^3/uL (0-0.8); Lymphocytes # (auto) 1.9 10 ^3/uL (0.4-5.4); Mean Corpuscular Hemoglobin 26.9 pg (28.0-32.0); Mean Corpuscular Volume 83.6 fL (80.0-100.0); Monocytes # (auto) 0.4 10 ^3/uL (0-1.3); Nucleated Red Blood Cells % 0.1 %
[2023-09-20 05:54] LABS: Basophils % (auto) 0.5 % (0.0-2.0); Eosinophils % (auto) 2.1 % (0.0-7.0); Hemoglobin 12.2 g/dL (12.2-16.2); Lymphocytes % (auto) 31.7 % (10.0-50.0); Mean Corpuscular Hgb Conc. 32.2 g/dL (32.0-36.0); Monocytes % (auto) 5.8 % (0.0-12.0); Neutrophils # (auto) 3.6 10 ^3/uL (1.6-8.6); Neutrophils % (auto) 59.9 % (37.0-80.0); Red Blood Cells 4.55 10^6/uL (4.0-5.20); Red Cell Distribution Width 16.3 % (11.8-14.3)
[2023-09-20] MEDS ORDERED: cefTRIAXone 1GM/50ML D5W 50 ML IV ONE (06:00)
[2023-09-20] MEDS ORDERED: IBUP-1456 PO (06:23)
[2023-09-20] MEDS ORDERED: CEPH500C PO (06:23)
[2023-09-20 06:40] VITALS: BP 133/71; PULSE 62; RESP 14; TEMP 97.7; O2SAT 100
[2023-09-20 07:53] LABS: INR 0.96 (0.9-1.15); Prothrombin Time 10.3 sec (9.3-11.8)
== END 2023-09-20 06:55 | disposition home or self-care (01) ==
LOC: ER 04:18 → EEVIPCON 04:18 → ER 06:55
DX: N20.0 Calculus of kidney (principal); N39.0 Urinary tract infection, site not specified; Z90.89 Acquired absence of other organs; Z98.51 Tubal ligation status; Z88.6 Allergy status to analgesic agent; Z88.8 Allergy status to other drugs, medicaments and biological substances
CPT/HCPCS: 36415; 74176; 80053; 81001; 85025; 85610; 85730; 96361; 96365; 96375; 99285; J0696; J1885; J2405; J7030

== ENCOUNTER → 2023-09-24 | Outpatient (CLI) | payer BC ==
[~2023-09-24] MED LIST changes: +CEPH500C PO; +IBUP-1456 PO
[2023-09-24 08:18] LABS: Basophils # (auto) 0 10 ^3/uL (0-0.2); Basophils % (auto) 0.4 % (0.0-2.0); Eosinophils # (auto) 0.1 10 ^3/uL (0-0.8); Lymphocytes # (auto) 1.2 10 ^3/uL (0.4-5.4); Monocytes # (auto) 0.3 10 ^3/uL (0-1.3); White Blood Cell 5.6 10^3/uL (4.4-10.8)
[2023-09-24 08:19] LABS: Eosinophils % (auto) 1.6 % (0.0-7.0); Hemoglobin 12.2 g/dL (12.2-16.2); Lymphocytes % (auto) 20.8 % (10.0-50.0); Mean Corpuscular Hemoglobin 26.6 pg (28.0-32.0); Mean Corpuscular Volume 83.1 fL (80.0-100.0); Monocytes % (auto) 5.9 % (0.0-12.0); Neutrophils % (auto) 71.3 % (37.0-80.0); Red Blood Cells 4.58 10^6/uL (4.0-5.20)
[2023-09-24 08:26] LABS: Urine Bacteria NONE SEEN /hpf (None Seen); Urine Blood TRACE /uL (Negative); Urine Clarity Clear (Clear); Urine Color Colorless (Yellow); Urine Protein, UAD Negative (Negative); Urine Specific Gravity 1.008 (1.001-1.035); Urine Urobilinogen Normal (Negative); Urine WBC <1 /hpf (0 - 5); Urine pH 5.5 (5.0-8.0)
[2023-09-24 09:15] LABS: Alanine Aminotransferase 17 U/L (7-40); Albumin 4.4 g/dL (3.2-4.8); Alkaline Phosphatase 100 U/L (46-116); Anion Gap 8 (5-15); Aspartate Aminotransferase 19 U/L (13-40); BUN/Creatinine Ratio 15.1 (10.0-20.0); Bilirubin, Total 0.5 mg/dL (0.2-1.0); Blood Urea Nitrogen 11 mg/dL (9-23); Calcium 9.5 mg/dL (8.5-10.1); Carbon Dioxide 25 mmol/L (20-30); Chloride 107 mmol/L (98-107); Cholesterol 193 mg/dL (< 200); Glucose 110 mg/dL (74-106); HDL Cholesterol 53 mg/dL (40-59); LDL Cholesterol 139 mg/dL (< 100); Sodium 140 mmol/L (136-145); Total Protein 6.8 g/dL (5.7-8.2); Triglycerides 76 mg/dL (< 150)
== END | disposition home or self-care (01) ==
LOC: LAB 08:02
PROVIDERS: ATTEND Nurse Practitioner
DX: I10 Essential (primary) hypertension (principal); E78.5 Hyperlipidemia, unspecified; R73.9 Hyperglycemia, unspecified
CPT/HCPCS: 36415; 80053; 80061; 81001; 83036; 84443; 85025

== ENCOUNTER 2024-02-22 10:50 | Emergency (ER) | payer BC, OTHER ==
[~2024-02-22] VITALS: Ht 165.1 cm; Wt 100.0 kg
[~2024-02-22 10:50] MED LIST changes: +ALBUAER3 IN; +AZITTAB PO; +BENZ200C64 PO; +GUAI100S6 PO; +PRED20TA2 PO
[2024-02-22 11:07] VITALS: TEMP 98.4
[2024-02-22] MEDS: LORazepam 2MG/ML-1ML VIAL IM ONE (11:09)
[2024-02-22 11:23] VITALS: BP 127/54; PULSE 99; RESP 18; O2SAT 97
== END 2024-02-22 11:40 | disposition home or self-care (01) ==
LOC: ER 11:04 → EEVIPCON 11:04 → ER 11:39
DX: F41.1 Generalized anxiety disorder (principal); Z86.2 Personal history of diseases of the blood and blood-forming organs and certain disorders involving the immune mechanism; Z98.890 Other specified postprocedural states; Z88.8 Allergy status to other drugs, medicaments and biological substances; Z79.899 Other long term (current) drug therapy
CPT/HCPCS: 96372; 99283; J2060

== ENCOUNTER → 2024-04-23 | Outpatient (CLI) | payer BC ==
[~2024-04-23] VITALS: Ht 165.1 cm; Wt 98.9 kg
== END | disposition home or self-care (01) ==
LOC: Rad HDHVI 08:08
PROVIDERS: ATTEND Internal Medicine Cardiovascular Disease
DX: I08.1 Rheumatic disorders of both mitral and tricuspid valves (principal); R07.89 Other chest pain; R00.2 Palpitations; I27.21 Secondary pulmonary arterial hypertension; Z82.49 Family history of ischemic heart disease and other diseases of the circulatory system
CPT/HCPCS: 78452; 93017; 93306; 96374; A9500

== ENCOUNTER 2025-02-02 07:23 | Emergency (ER) | payer BC, OTHER ==
[~2025-02-02] VITALS: Ht 165.1 cm; Wt 100.0 kg
[~2025-02-02 07:23] MED LIST changes: +CLIN1CAP70 PO; +LEVO500T91 PO; +PRED10TA PO
[2025-02-02] MEDS: KETOROLAC TROMETH 30 MG/ML 1ML VIAL IM ONE (07:42)
--- NOTE | 2025-02-02 07:42 | ED.PDOC ---
General HPI Comments 64 year old female presents to the ED with a chief complaint of LT flank pain onset 2 days. Patient states she began experiencing LUQ pain radiating to LT flank, LT shoulder, worsen this morning. Patient took Tramadol for pain last night with no improvement of symptoms. PMHx kidney stone, anemia. Denies nausea, vomiting, diarrhea, dysuria, hematuria, fever, chills, dizziness, headache. No other symptoms or modifying factors present at this time. Chief Complaint: Flank Pain Time Seen by MD: 07:30 Primary Care Provider: unknown Reviewed notes: Medications, Allergies Allergies: Coded Allergies: Meperidine (Verified Allergy, Severe, SWELING, 01/02/21) Sulfa Antibiotics (Verified Allergy, Intermediate, 01/02/21) Uncoded Allergies: DEMEROL (Allergy, Severe, SWELLING, 09/04/19) Home Meds Active Scripts Amoxicillin & Pot Clavulanate (Amoxicillin/Potassium Cla) 875 Mg Tab, 1 TAB PO BID for 7 Days, #14 TAB 0 Refills Prov:JOSE VARGAS 11/10/24 Levofloxacin Hemihydrate (LEVOFLOXACIN) 500 Mg Tab, 1 TAB PO DAILY for 7 Days, #7 TAB Prov:LANDRY KAISER MD 09/23/24 Prednisone (Prednisone) 20 Mg Tab, 20 MG PO DAILY for 5 Days, #5 MG Prov:LANDRY KAISER MD 09/23/24 Prednisone (Prednisone) 10 Mg Tab, 10 MG PO DAILY for 5 Days, #5 MG Prov:LANDRY KAISER MD 09/23/24 Clindamycin Hcl (Clindamycin Hcl) 300 Mg Cap, 300 MG PO QID for 10 Days, #40 CAP Prov:VERITO LOZA 06/23/24 Benzonatate (Benzonatate) 200 Mg Cap, 1 CAP PO TID, #30 CAP As needed for cough Prov:HALLE MIX Q DIRECTOR CALL 12/24/23 Prednisone (Prednisone) 20 Mg Tab, 1 TAB PO BID for 5 Days, #10 TAB Start tomorrow with food Prov:HALLE MIX Q DIRECTOR CALL 12/24/23 Albuterol Sulfate (VENTOLIN MDI) 90 Mcg Ih, 1 PUFF IN Q4HPRN PRN, #1 INH As needed for cough nasal congestion shortness of breath or wheezing Prov:HALLE MIX Q DIRECTOR CALL 12/24/23 Azithromycin (Zithromax Z-Rubens) 250 Mg Tab, 1 TAB PO DAILY for 5 Days, #6 TAB Take 2 tablets today then 1 tablet start tomorrow for 4days Prov:HALLE MIX Q DIRECTOR CALL 12/24/23 Ibuprofen (Ibuprofen) 800 Mg Tab, 800 MG PO Q8HP PRN, #30 TAB Prov:NACHO ANDERSON MD 09/20/23 Cephalexin Monohydrate (Cephalexin) 500 Mg Cap, 1 CAP PO QID for 10 Days, #40 CAP Prov:NACHO ANDERSON MD 09/20/23 Tramadol Hcl (Tramadol Hcl) 50 Mg Tab, 50 MG PO BID for 15 Days, #30 TAB 4 Refills Prov:SAMI JACK MD 03/22/23 Amoxicillin & Pot Clavulanate (Amoxicillin/Potassium Cla) 875 Mg Tab, 1 TAB PO BID for 10 Days, #20 TAB 0 Refills Prov:KIANNA WU 10/27/22 Nitrofurantoin Monohydrate Mac (Macrobid) 100 Mg Cap, 100 MG PO BID for 7 Days, #14 CAP Prov:SAMI JACK MD 07/20/22 Tramadol Hcl (Tramadol Hcl) 50 Mg Tab, 50 MG PO BID for 15 Days, #30 TAB Prov:SAMI JACK MD 07/20/22 Reported Medications Guaifenesin-Codeine (Robitussin/Codeine) 10 Ml So, 5 ML PO Q6HR, #120 ML As needed for cough 12/24/23 Omeprazole (Omeprazole) 20 Mg Cap, 20 MG PO BID, CAP 02/03/19 Celecoxib (Celebrex) 100 Mg Cap, 200 MG PO BID for 30 Days, MG 01/30/19 Gabapentin (Gabapentin) 300 Mg Cap, 300 MG PO TID for 30 Days, MG 01/30/19 Information Source: Patient Mode of Arrival: Ambulatory Severity: Moderate Timing: Days Duration: Since onset Prehospital treatment: Pain Meds (Tramadol ) Onset: Spontaneous Symptoms: Other (flank pain) History of: Kidney stone Location: (L)Flank Modifying factors: None associated signs and symptoms: Abdominal Pain (LUQ), Flank Pain (LT) Past Medical History PAST MEDICAL HISTORY: Anemia, Kidney Stones Surgical History: , Thyroidectomy, Tonsillectomy, Tubal Ligation DEMOGRAPHER History: No Pertinent DEMOGRAPHER History Family History Family History: Reviewed,noncontributory to illness Social History Smoker: Non-Smoker Alcohol: Denies ETOH Use Drugs: Denies Drug Use Lives In: Home Constitutional: denies: chills, diaphoresis, fatigue, fever, malaise, sweats, weakness, others EENTM: denies: blurred vision, double vision, ear bleeding, ear discharge, ear drainage, ear pain, ear ringing, eye pain, eye redness, hearing loss, mouth pain, mouth swelling, nasal discharge, nose bleeding, nose congestion, nose pain, photophobia, tearing, throat pain, throat swelling, voice changes, others Respiratory: denies: cough, hemoptysis, orthopnea, SOB at rest, shortness of breath, SOB with excertion, stridor, wheezing, others Cardiovascular: denies: chest pain, dizzy spells, diaphoresis, Dyspnea on exertion, edema, irregular heart beat, left arm pain, lightheadedness, palpitations, PND, syncope, others Gastrointestinal: reports: abdominal pain (LUQ); denies: abdomen distended, blood streaked bowels, constipated, diarrhea, dysphagia, difficulty swallowing, hematemesis, melena, nausea, poor appetite, poor fluid intake, rectal bleeding, rectal pain, vomiting, others Genitourinary: reports: flank pain; denies: abnormal vagina bleeding, burning, dyspareunia, dysuria, frequency, hematuria, incontinence, pain, , vagina discharge, urgency, others Neurological: denies: dizziness, fainting, headache, left sided numbness, left sided weakness, numbness, paresthesia, pre-existing deficit, right sided numbness, right sided weakness, seizure, speech problems, tingling, tremors, weakness, others Musculoskeletal: reports: others (LT shoulder pain); denies: back pain, gout, joint pain, joint swelling, muscle pain, muscle stiffness, neck pain Integumetry: denies: bruises, change in color, change in hair/nails, dryness, laceration, lesions, lumps, rash, wounds, others Allergic/Immunocompromised: denies: Difficulty Healing, Frequent Infections, Hives, Itching, others Hematologic/Lymphatic: denies: anemia, blood clots, easy bleeding, easy bruising, swollen glands, others Endocrine: denies: excessive hunger, excessive sweating, excessive thirst, excessive urination, flushing, intolerance to cold, intolerance to heat, unexplained weight gain, unexplained weight loss, others Psychiatric: denies: anxiety, bipolar disorder, depression, hopeless, panic disorder, schizophrenia, sleepless, suicidal, others All Other Systems: Reviewed and Negative Physical Exam General Appearance: No Apparent Distress, Normal HEENT: Normal ENT Inspection, Pharynx Normal, TMs Normal Neck: Full Range of Motion, Non-Tender, Normal, Normal Inspection Respiratory: Chest Non-Tender, Lungs Clear, No Accessory Muscle Use, No Respiratory Distress, Normal Breath Sounds Cardiovascular: No Edema, No JVD, No Murmur, No Gallop, Normal Peripheral Pulses, Regular Rate/Rhythm Breast Exam: Deferred Gastrointestinal: No Organomegaly, Non Tender, No Pulsatile Mass, Normal Bowel Sounds, Soft Genitalia: Deferred Pelvic: Deferred Rectal: Deferred Extremities: No calf tenderness, Normal capillary refill, Normal inspection, Normal range of motion, Non-tender, No pedal edema Musculoskeletal : Apperance: Normal Neurologic: Alert, service car operator II-XII nml as Tested, No Motor Deficits, Normal Affect, Normal Mood, No Sensory Deficits Cerebellar Function: Normal Reflexes: Normal Skin: Dry, Normal Color, Warm Lymphatic: No Adenopathy Was a procedure done? Was a procedure done?: No Differential Diagnosis Kidney stone (Female): Renal failure, Strain, Urolithiasis Kidney stone (Male): N/A Penile/Scrotal: N/A Urinary Problem (Male): N/A Urinary Problem (Female): Urolithiasis, UTI X-Ray, Labs, Meds, VS Vital Signs Date Time Temp Pulse Resp B/P (MAP) Pulse Ox O2 Delivery O2 Flow Rate FiO2 02/02/25 07:50 97.9 68 18 127/65 (85) 99 97.9 02/02/25 07:32 97.8 68 17 145/83 (103) 99 97.8 Lab Test 02/02/25 07:59 02/02/25 07:15 Range/Units White Blood Count 6.1 4.4-10.8 10^3/uL Red Blood Count 4.35 4.0-5.20 10^6/uL Hemoglobin 11.3 L 12.2-16.2 g/dL Hematocrit 34.3 L 36.0-46.0 % Mean Corpuscular Volume 78.7 L 80.0-100.0 fL Mean Corpuscular Hemoglobin 25.9 L 28.0-32.0 pg Mean Corpuscular Hemoglobin Concent 32.9 32.0-36.0 g/dL Red Cell Distribution Width 17.7 H 11.8-14.3 % Platelet Count 241 140-450 10^3/uL Mean Platelet Volume 8.4 6.9-10.8 fL Neutrophils (%) (Auto) 68.7 37.0-80.0 % Lymphocytes (%) (Auto) 21.0 10.0-50.0 % Monocytes (%) (Auto) 7.3 0.0-12.0 % Eosinophils (%) (Auto) 2.6 0.0-7.0 % Basophils (%) (Auto) 0.4 0.0-2.0 % Neutrophils # (Auto) 4.2 1.6-8.6 10 ^3/uL Lymphocytes # (Auto) 1.3 0.4-5.4 10 ^3/uL Monocytes # (Auto) 0.4 0-1.3 10 ^3/uL Eosinophils # (Auto) 0.2 0-0.8 10 ^3/uL Basophils # (Auto) 0 0-0.2 10 ^3/uL Nucleated Red Blood Cells 0.0 % Sodium Level 139 136-145 mmol/L Potassium Level 3.6 3.5-5.1 mmol/L Chloride Level 105 98-107 mmol/L Carbon Dioxide Level 27 20-31 mmol/L Anion Gap 7 5-15 Blood Urea Nitrogen 15 9-23 mg/dL Creatinine 0.74 0.550-1.02 mg/dL Glomerular Filtration Rate Calc 90 >90 mL/min BUN/Creatinine Ratio 20.3 H 10.0-20.0 Serum Glucose 113 H 74-106 mg/dL Calcium Level 9.7 8.7-10.4 mg/dL Urine Color Light-yellow Yellow Urine Clarity Clear Clear Urine pH 6.0 5.0-9.0 Urine Specific [place] 1.013 1.001-1.035 Urine Protein Negative Negative Urine Ketones Negative Negative Urine Blood Trace H Negative /uL Urine Nitrite Negative Negative Urine Bilirubin Negative Negative Urine Urobilinogen Normal Negative mg/dL Urine Leukocyte Esterase Negative Negative /uL Urine RBC 2 0 - 4 /hpf Urine Microscopic WBC 3 0-5 /HPF Urine Squamous Epithelial Cells Few <5 /hpf Urine Bacteria Few H None Seen /hpf Urine Glucose Normal Normal mg/dL Current Medications Medications (Trade) Dose Ordered Sig/Gene Route Start Time Stop Time Status Last Admin Ketorolac Tromethamine (Toradol Injection) 15 mg ONCE ONCE IM 02/02/25 07:45 02/02/25 07:46 DC 02/02/25 07:42 [place] [id number] Ph: [phone] DIAGNOSTIC IMAGING Diagnostic Imaging Report : [id number] Signed PATIENT: KARELY PALMACT: [id number] UNIT: [id number] : 1960 LOC: ER ROOM / BED: / AGE / SEX: 64 / F ADM STATUS: REG ER SERVICE [id number] ORDERING PHYSICIAN: BRAYDEN HUANG MD PROCEDURE(s): ABPL - CT AB PEL WO CON-NO ORAL OR IV REASON: left flank pain ORDER NUMBER(s): [id number], ACCESSION NUMBER(s): [id number] CT ABDOMEN AND PELVIS WITHOUT CONTRAST CLINICAL HISTORY: left flank pain TECHNIQUE: Multiple contiguous axial images of the abdomen and pelvis without intravenous contrast. The images were reformatted degenerate coronal and sagittal reconstructions. All CT scans at this medical facility are performed using dose modulation techniques as appropriate to a performed exam including the following:Automated exposure control was utilized; adjustment of the MA and/or KV according to patient size; and use of iterative reconstruction technique. Radiation Dose Information: CT Dose: CTDI volume is 23.82 mGy. Dose-length product is 1366.74 mGy*cm Comparison: CT CT AB PEL WO CON-NO ORAL OR IV on DOS: 09/20/23, CT ABD PELVIS WO CONTRAST on DOS: 07/20/22 FINDINGS: Evaluation of the abdomen and pelvis is limited without intravenous contrast. There is a stable 2.6 cm cystic lesion with peripheral calcifications in the midpole of the left kidney. There is no evidence of nephrolithiasis or hydronephrosis. There is no evidence of a ureteral calculus or hydroureter. The liver, gallbladder, pancreas, adrenal glands, and spleen appear within normal limits. There is no gross evidence of abdominal lymphadenopathy. There is no free fluid or free air. There are gastric postsurgical changes related to bypass surgery. The small and large bowel loops demonstrate normal caliber and distribution. A normal appearing appendix is seen in the right lower quadrant abdomen. The abdominal aorta and IVC appear within normal limits. The bladder appears unremarkable for the degree of distention. Pelvic organ appears within normal limits. There is no gross evidence of a pelvic mass. There is no free fluid collection. Lung bases are clear. There is no acute osseous abnormality. There is fusion hardware at the L4-L5 level. IMPRESSION: 1. There is no acute process in the abdomen and pelvis. 2. Stable 2.6 cm cystic lesion with peripheral calcifications in the midpole of the left kidney. HS:Y ATED BY: BUNNY JONES MD DICTATED DATE/TIME: 02/02/25814 SIGNED BY: BUNNY JONES MD SIGNED DATE/TIME: 02/02/25814 CC: Time of 1ST Reevaluation: 08:00 Reevaluation 1ST: Unchanged Patient Education/Counseling: Diagnosis, Treatment, Prognosis Family Education/Counseling: No Family Present Additional Information The following tests were ordered, and results were reviewed by me: BMP, CBC, UA, CT AB PEL WO CON I reviewed and agreed with the following test results read by other providers: CT AB PEL WO CON I discussed treatment and results with medical personnel and: patient Comprehensive systems review obtained and negative except for what is stated in the HPI. Departure 1 Departure Time of Disposition: 10:30 (Patient presented with abdominal pain that was concerning for possible appendicits, gastritis, cholecystitis, colitis, gastroenteritis, or orther possible surgical emergency. Data: 1. I ordered and reviewed the result of at least 3 labs including a CBC, BMP, and Urinalysis. 2. I independently interpreted the following tests: CT Abdoment and Pelvis is concerning for renal cysts .Risk:This patient has a high risk of morbidity due to further diagnostic testing or treatment and may suffer from an acute abdominal process disorder. Fortunately workup reveals renal cyst and patient can be safely discharged to home with outpatient follow up.) Impression: Primary Impression: Renal cyst, left Additional Impression: Flank pain Disposition: 01 HOME / SELF CARE / HOMELESS Condition: Stable Additional Instructions: You have a cyst on your left kidney. For pain you can take the followinam: Ibuprofen 400mg with food Noon: Acetaminophen 1000mg 4pm: Ibuprofen 400mg with food 8pm: Acetaminophen 1000mg You should follow up with your regular doctor within one week to ensure you are doing better. If your symptoms worsen or you have any other concerns then please return to the ER. Critical Care Note Critical Care Time?: No Stability Stability form required: No I personally scribed for BRAYDEN HUANG MD ([email or web address]) on 02/02/25 at 07:42. Electronically submitted by Chacha Dennis ([email or web address]). I personally scribed for BRAYDEN HUANG MD ([email or web address]) on 02/02/25 at 07:49. Electronically submitted by Chacha Dennis ([email or web address]). I personally scribed for BRAYDEN HUANG MD ([email or web address]) on 02/02/25 at 08:27. Perri ctronically submitted by Chacha Dennis ([email or web address]). BRAYDEN HUANG MD February 02, 2025 07:42
[2025-02-02 07:50] VITALS: BP 127/65; TEMP 97.9
[2025-02-02 08:03] LABS: Urine Bacteria FEW /hpf (None Seen); Urine Blood TRACE /uL (Negative); Urine Clarity Clear (Clear); Urine Color Light-Yellow (Yellow); Urine Protein, UAD Negative (Negative); Urine Specific Gravity 1.013 (1.001-1.035); Urine Squamous Epithelial Cell FEW /hpf (<5); Urine Urobilinogen Normal (Negative); Urine WBC 3 /HPF (0-5)
[2025-02-02 08:09] LABS: Basophils # (auto) 0 10 ^3/uL (0-0.2); Basophils % (auto) 0.4 % (0.0-2.0); Eosinophils # (auto) 0.2 10 ^3/uL (0-0.8); Eosinophils % (auto) 2.6 % (0.0-7.0); Hematocrit 34.3 % (36.0-46.0); Hemoglobin 11.3 g/dL (12.2-16.2); Lymphocytes # (auto) 1.3 10 ^3/uL (0.4-5.4); Mean Corpuscular Hemoglobin 25.9 pg (28.0-32.0); Mean Corpuscular Hgb Conc. 32.9 g/dL (32.0-36.0); Mean Corpuscular Volume 78.7 fL (80.0-100.0); Monocytes # (auto) 0.4 10 ^3/uL (0-1.3); Monocytes % (auto) 7.3 % (0.0-12.0); Neutrophils # (auto) 4.2 10 ^3/uL (1.6-8.6); Neutrophils % (auto) 68.7 % (37.0-80.0); Platelet Count (auto) 241 10^3/uL (140-450); Red Blood Cells 4.35 10^6/uL (4.0-5.20); Red Cell Distribution Width 17.7 % (11.8-14.3); White Blood Cell 6.1 10^3/uL (4.4-10.8)
--- NOTE | 2025-02-02 08:18 | DVH ---
CT ABDOMEN AND PELVIS WITHOUT CONTRAST CLINICAL HISTORY: left flank pain TECHNIQUE: Multiple contiguous axial images of the abdomen and pelvis without intravenous contrast. T he images were reformatted degenerate coronal and sagittal reconstructions. All CT scans at this medical facility are performed using dose modulation techniques as appropriate t o a performed exam including the following:Automated exposure control was utilized; adjustment of the MA and/or KV according to patient size; and use of iterative reconstruction technique. Radiation Dose Information: CT Dose: CTDI volume is 23.82 mGy. Dose-length product is 1366.74 mGy*cm Comparison: CT CT AB PEL WO CON-NO ORAL OR IV on DOS: 09/20/23, CT ABD PELVIS WO CONTRAST on DOS: FINDINGS: Evaluation of the abdomen and pelvis is limited without intravenous contrast. There is a stable 2.6 cm cystic lesion with peripheral calcifications in the midpole of the left kidn ey. There is no evidence of nephrolithiasis or hydronephrosis. There is no evidence of a ureteral jose culus or hydroureter. The liver, gallbladder, pancreas, adrenal glands, and spleen appear within normal limits. There is no gross evidence of abdominal lymphadenopathy. There is no free fluid or free air. There are gastric postsurgical changes related to bypass surgery. The small and large bowel loops de monstrate normal caliber and distribution. A normal appearing appendix is seen in the right lower salma drant abdomen. The abdominal aorta and IVC appear within normal limits. The bladder appears unremarkable for the degree of distention. Pelvic organ appears within normal gonsalez its. There is no gross evidence of a pelvic mass. There is no free fluid collection. Lung bases are clear. There is no acute osseous abnormality. There is fusion hardware at the L4-L5 level. IMPRESSION: 1. There is no acute process in the abdomen and pelvis. 2. Stable 2.6 cm cystic lesion with peripheral calcifications in the midpole of the left kidney. HS:Y
[2025-02-02 08:58] LABS: Chloride 105 mmol/L (98-107); Potassium 3.6 mmol/L (3.5-5.1); Sodium 139 mmol/L (136-145)
[2025-02-02 08:59] LABS: Anion Gap 7 (5-15); Carbon Dioxide 27 mmol/L (20-31)
[2025-02-02 09:00] LABS: Calcium 9.7 mg/dL (8.7-10.4)
[2025-02-02 09:04] LABS: BUN/Creatinine Ratio 20.3 (10.0-20.0); Blood Urea Nitrogen 15 mg/dL (9-23)
[2025-02-02 09:06] LABS: Glucose 113 mg/dL (74-106)
[2025-02-02 10:00] VITALS: PULSE 59; RESP 15; O2SAT 98
== END 2025-02-02 10:36 | disposition home or self-care (01) ==
LOC: ER 07:26
DX: N28.1 Cyst of kidney, acquired (principal); Z90.89 Acquired absence of other organs; Z98.51 Tubal ligation status; Z98.890 Other specified postprocedural states; Z79.52 Long term (current) use of systemic steroids; Z79.899 Other long term (current) drug therapy; Z88.2 Allergy status to sulfonamides; Z88.5 Allergy status to narcotic agent
CPT/HCPCS: 36415; 74176; 80048; 81001; 85025; 96372; 99285; J1885

== ENCOUNTER 2025-05-04 07:11 | Outpatient (CLI) | payer BC ==
[~2025-05-04 07:11] MED LIST changes: +AZIT-43 PO
[2025-05-04 07:39] LABS: Urine Protein, UAD Negative (Negative)
[2025-05-04 07:44] LABS: Mean Corpuscular Volume 80.0 fL (80.0-100.0); Nucleated Red Blood Cells % 0.0 %
[2025-05-04 07:52] LABS: Hematocrit 34.0 % (36.0-46.0); Hemoglobin 11.3 g/dL (12.2-16.2); Mean Corpuscular Hemoglobin 26.6 pg (28.0-32.0)
[2025-05-04 08:05] LABS: Alanine Aminotransferase 19 U/L (7-40); Albumin 4.5 g/dL (3.2-4.8); Alkaline Phosphatase 107 U/L (46-116); Anion Gap 10 (5-15); BUN/Creatinine Ratio 21.9 (10.0-20.0); Blood Urea Nitrogen 16 mg/dL (9-23); Calcium 9.2 mg/dL (8.7-10.4); Carbon Dioxide 26 mmol/L (20-31); Chloride 105 mmol/L (98-107); Cholesterol 199 mg/dL (< 200); HDL Cholesterol 56 mg/dL (40-59); Potassium 4.3 mmol/L (3.5-5.1); Sodium 141 mmol/L (136-145); Total Protein 6.8 g/dL (5.7-8.2); Triglycerides 101 mg/dL (< 150)
[2025-05-04 08:06] LABS: Bilirubin, Total 0.4 mg/dL (0.2-1.0)
[2025-05-04 08:13] LABS: Glucose 109 mg/dL (74-106)
== END 2025-05-04 17:00 | disposition home or self-care (01) ==
LOC: LAB 07:11
PROVIDERS: ATTEND Nurse Practitioner
DX: I10 Essential (primary) hypertension (principal); E78.5 Hyperlipidemia, unspecified; R73.9 Hyperglycemia, unspecified
CPT/HCPCS: 36415; 80053; 80061; 81001; 83036; 84443; 85025

== ENCOUNTER 2025-08-03 04:10 | Emergency (ER) | payer BC, OTHER ==
[~2025-08-03] VITALS: Ht 165.1 cm; Wt 102.2 kg
[~2025-08-03 04:10] MED LIST changes: +CIPR500T4 PO
[2025-08-03] MEDS: methylPREDNISolone ACETATE 80 MG/ML VL IM ONE (04:26)
[2025-08-03 04:28] VITALS: BP 144/67; PULSE 75; RESP 18; TEMP 98; O2SAT 99
--- NOTE | 2025-08-03 04:29 | ED.PDOC ---
Back pain HPI HPI Comments 65 y-o female presents in the ED CC of acute on chronic left hip pain. PT notes old work injury July 13 2024, she states has been having severe intermittent pain since. She notes pain has been worsening over the past several months. Has tried OTC pain and prescribed medications with minimal pain improvement. Pt states pain is worse with ambulating, she does note insomnia due to the pain with inability to find a comfortable position. Denies numbness, weakness, or new known injury. Chief Complaint: Lower Extremity Time Seen by MD: 04:12 Reviewed Notes: Nurses Notes, Medications, Allergies Allergies: Coded Allergies: Meperidine (Verified Allergy, Severe, SWELING, 01/02/21) Sulfa Antibiotics (Verified Allergy, Intermediate, 01/02/21) Uncoded Allergies: DEMEROL (Allergy, Severe, SWELLING, 09/04/19) Home Meds Active Scripts Ciprofloxacin Hcl (Ciprofloxacin Hcl) 500 Mg Tab, 1 TAB PO BID for 7 Days, #14 TAB 0 Refills Prov:JOSE VARGAS 06/03/25 Prednisone (Prednisone) 20 Mg Tab, 20 MG PO BID for 5 Days, #10 TAB 0 Refills Prov:JOSE VARGAS 03/31/25 Azithromycin (Azithromycin) 250 Mg Tab, 250 MG PO DAILY MDD 500 for 5 Days, #6 TAB 0 Refills 2 TABLETS ORALLY ON DAY ONE, THEN 1 TABLET ORALLY DAILY FOR 4 DAYS Prov:JOSE VARGAS 03/31/25 Amoxicillin & Pot Clavulanate (Amoxicillin/Potassium Cla) 875 Mg Tab, 1 TAB PO BID for 7 Days, #14 TAB 0 Refills Prov:JOSE VARGAS 11/10/24 Levofloxacin Hemihydrate (LEVOFLOXACIN) 500 Mg Tab, 1 TAB PO DAILY for 7 Days, #7 TAB Prov:LANDRY KAISER MD 09/23/24 Prednisone (Prednisone) 20 Mg Tab, 20 MG PO DAILY for 5 Days, #5 MG Prov:LANDRY KAISER MD 09/23/24 Prednisone (Prednisone) 10 Mg Tab, 10 MG PO DAILY for 5 Days, #5 MG Prov:LANDRY KAISER MD 09/23/24 Clindamycin Hcl (Clindamycin Hcl) 300 Mg Cap, 300 MG PO QID for 10 Days, #40 CAP Prov:VERITO DURON 06/23/24 Benzonatate (Benzonatate) 200 Mg Cap, 1 CAP PO TID, #30 CAP As needed for cough Prov:HALLE MIX SALES DEVELOPMENT CONSULTANT 12/24/23 Prednisone (Prednisone) 20 Mg Tab, 1 TAB PO BID for 5 Days, #10 TAB Start tomorrow with food Prov:HALLE MIX Q SALES DEVELOPMENT CONSULTANT 12/24/23 Albuterol Sulfate (VENTOLIN MDI) 90 Mcg Ih, 1 PUFF IN Q4HPRN PRN, #1 INH As needed for cough nasal congestion shortness of breath or wheezing Prov:HALLE MIX Q SALES DEVELOPMENT CONSULTANT 12/24/23 Azithromycin (Zithromax Z-Rubens) 250 Mg Tab, 1 TAB PO DAILY for 5 Days, #6 TAB Take 2 tablets today then 1 tablet start tomorrow for 4days Prov:HALLE MIX Q SALES DEVELOPMENT CONSULTANT 12/24/23 Ibuprofen (Ibuprofen) 800 Mg Tab, 800 MG PO Q8HP PRN, #30 TAB Prov:NACHO ANDERSON MD 09/20/23 Cephalexin Monohydrate (Cephalexin) 500 Mg Cap, 1 CAP PO QID for 10 Days, #40 CAP Prov:NACHO ANDERSON MD 09/20/23 Tramadol Hcl (Tramadol Hcl) 50 Mg Tab, 50 MG PO BID for 15 Days, #30 TAB 4 Refills Prov:SAMI JACK MD 03/22/23 Amoxicillin & Pot Clavulanate (Amoxicillin/Potassium Cla) 875 Mg Tab, 1 TAB PO BID for 10 Days, #20 TAB 0 Refills Prov:KIANNA WU PA 10/27/22 Nitrofurantoin Monohydrate Mac (Macrobid) 100 Mg Cap, 100 MG PO BID for 7 Days, #14 CAP Prov:SAMI JACK MD 07/20/22 Tramadol Hcl (Tramadol Hcl) 50 Mg Tab, 50 MG PO BID for 15 Days, #30 TAB Prov:SAMI JACK MD 07/20/22 Reported Medications Guaifenesin-Codeine (Robitussin/Codeine) 10 Ml So, 5 ML PO Q6HR, #120 ML As needed for cough 12/24/23 Omeprazole (Omeprazole) 20 Mg Cap, 20 MG PO BID, CAP 02/03/19 Celecoxib (Celebrex) 100 Mg Cap, 200 MG PO BID for 30 Days, MG 01/30/19 Gabapentin (Gabapentin) 300 Mg Cap, 300 MG PO TID for 30 Days, MG 01/30/19 Mode of Arrival: Ambulatory Past Medical History PAST MEDICAL HISTORY: Anemia, Kidney Stones Surgical History: , Thyroidectomy, Tonsillectomy, Tubal Ligation 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 History Family History Family History: Reviewed,noncontributory to illness Social History Smoker: Non-Smoker Alcohol: Denies ETOH Use Drugs: Denies Drug Use Lives In: Home All Other Systems: Reviewed and Negative (SEE HPI ) Physical Exam General Appearance: No Apparent Distress, Normal HEENT: Pharynx Normal Neck: Full Range of Motion, Non-Tender Respiratory: Lungs Clear, No Respiratory Distress, Normal Breath Sounds Cardiovascular: No Murmur, Normal Peripheral Pulses, Regular Rate/Rhythm Breast Exam: Deferred Gastrointestinal: Non Tender, Soft Genitalia: Deferred Pelvic: Deferred Rectal: Deferred Extremities: Normal capillary refill, Normal range of motion, No pedal edema Musculoskeletal : Location: Left Extremity Location: Hip (SEVERE TPP LATERAL HIP AND GROIN. PT WITH LIMPING GAIT DUE TO PAIN. STRENGTH, SENSORY AND MOTION INTAKE WITH MODERATE DISCOMFORT + PP. NO LIMB ROTATION OR SHORTINING NOTED ) Apperance: Normal Neurologic: Alert, No Motor Deficits, Normal Affect, Normal Mood, No Sensory Deficits Cerebellar Function: Normal Reflexes: Normal Skin: Dry, Normal Color, Warm Lymphatic: No Adenopathy Was a procedure done? Was a procedure done?: No Back Pain Differential Dx Differential Diagnosis: Fracture, Musculoskeletal Pain, Strain X-Ray, Labs, Meds, VS Vital Signs Date Time Temp Pulse Resp B/P (MAP) Pulse Ox O2 Delivery O2 Flow Rate FiO2 08/03/25 04:12 98.0 80 18 144/67 99 98.0 X-Ray, Labs, Meds, VS Comment Patient treated with Depo-Medrol 80MG IM. Consider intra-articular injection into joint and Troch Bursa if symptoms persist. f/u with pain management as d iscussed. Time of 1ST Reevaluation: 04:12 Reevaluation 1ST: Unchanged Time of 2ND Reevaluation: 04:27 Reevaluation 2ND: Improved Patient Education/Counseling: Diagnosis, Treatment, Need For Follow Up Family Education/Counseling: No Family Present SEPSIS Sepsis Screen Date sepsis recognized/suspect: Aug 03, 2025 Time Sepsis recognized/suspect: 0414 Recent Procedure: No On Antibiotic Therapy: No Respiratory Rate >20: No Heart Rate >90: No Temp<36 C (96.8 F) or >38.3 C: No SBP <90 or MAP <65 mmHG: No New Acute Mental Status Change: No Is the patient on CPAP, BIPAP,: No Vital Signs Date Time Temp Pulse Resp B/P (MAP) Pulse Ox O2 Delivery O2 Flow Rate FiO2 08/03/25 04:12 98.0 80 18 144/67 99 98.0 Departure 1 Departure Time of Disposition: 04:26 Impression: Primary Impression: Left hip pain Disposition: HOME / SELF CARE / HOMELESS Condition: Stable Discharged With: Self Critical Care Note Critical Care Time?: No Stability Stability form required: COLTON Sams Aug 03, 2025 04:29
== END 2025-08-03 04:46 | disposition home or self-care (01) ==
LOC: ER 04:10
DX: M25.552 Pain in left hip (principal); Z79.899 Other long term (current) drug therapy; Z88.2 Allergy status to sulfonamides; Z88.5 Allergy status to narcotic agent; Z90.89 Acquired absence of other organs; Z98.51 Tubal ligation status
CPT/HCPCS: 96372; 99283; J1010